=== PATIENT | male | born 1965 | race Caucasian/White ===

== ENCOUNTER 2024-08-11 01:06 | Inpatient (IN) | payer MEDICARE, SELFPAY ==
[2024-08-11] VITALS (21 sets, daily range): BP systolic 89–142; BP diastolic 53–89; PULSE 72–106; RESP 16–22; TEMP 36.6–36.7; O2SAT 87–100; BMI 38.7; BMI 39.7
--- NOTE | 2024-08-11 00:51 | ECG_ITS ---
APPROVED REPORT Exam: Resting ECG HR:100 bpm ECG Measurements Heart Rate 100 AXES CA 165 P -89 QRSd 93 QRS 114 QT 322 T -32 QTc 379 Conclusion Sinus TACHYCARDIA POSSIBLE RIGHT VENTRICULAR HYPERTROPHY [SOME/ALL OF: PROMINENT R IN V1, LATE TRANSITION, RAD, ZOIAL, SSS] POSSIBLE ANTERIOR MYOCARDIAL INFARCTION , OF INDETERMINATE AGE [30 ms Q WAVE IN V3/V4, OR R < 0.2 mV IN V4] No STEMI Electronically signed by : CATHLEEN JJ, 08/11/2024 05:19:12
--- NOTE | 2024-08-11 00:57 | PC.NURSE ---
Pt's glucose is 240
[2024-08-11 01:03] LABS: POC Glucose,Bedside 240 (70-110)
--- NOTE | 2024-08-11 01:05 | CT_ITS ---
PROCEDURE INFORMATION: Exam: CT Head Without Contrast Exam date and time: 08/11/2024 1:55 AM Age: 58 years old Clinical indication: Injury or trauma; Fall; Additional info: Falls, multiple TECHNIQUE: Imaging protocol: Computed tomography of the head without contrast. Radiation optimization: All CT scans at this facility use at least one of these dose optimization techniques: automated exposure control; mA and/or kV adjustment per patient size (includes targeted exams where dose is matched to clinical indication); or iterative reconstruction. COMPARISON: CT HEAD/BRAIN WO CON 08/11/2024 1:55 AM FINDINGS: Brain: There is a chronic left basal ganglia lacune. There is diffuse cortical volume loss and hypoattenuation of the deep white matter. No evidence of acute intracranial hemorrhage. No acute cerebral edema, mass effect or shift. Cerebral ventricles: No ventriculomegaly. Paranasal sinuses: Visualized sinuses are unremarkable. No fluid levels. Mastoid air cells: Visualized mastoid air cells are well aerated. Bones: Unremarkable. No acute fracture. Soft tissues: Unremarkable. IMPRESSION: No acute intracranial process. Diffuse cortical atrophy and chronic deep white matter small vessel disease.
--- NOTE | 2024-08-11 01:05 | CT_ITS ---
PROCEDURE INFORMATION: Exam: CTA Neck With Contrast Exam date and time: 08/11/2024 2:00 AM Age: 58 years old Clinical indication: Injury or trauma; Fall; Additional info: Multiple falls, syncopal episodes TECHNIQUE: Imaging protocol: Computed tomographic angiography of the neck with contrast. Exam focused on the cervical segments of the vasculature. 3D rendering (Not supervised by radiologist): MIP and/or 3D reconstructed images were created by the technologist. Radiation optimization: All CT scans at this facility use at least one of these dose optimization techniques: automated exposure control; mA and/or kV adjustment per patient size (includes targeted exams where dose is matched to clinical indication); or iterative reconstruction. Contrast material: ISOVUE; Contrast volume: 80 ml; Contrast route: INTRAVENOUS (IV); COMPARISON: CT CERVICAL SPINE WO CON 08/11/2024 1:57 AM FINDINGS: Right common carotid artery: Unremarkable. No significant stenosis. No dissection or occlusion. Right internal carotid artery: There is calcified mural plaque at the carotid bifurcation, but no significant stenosis. The remaining extracranial segment is patent with no significant stenosis. No dissection or occlusion. Right external carotid artery: No occlusion or stenosis of the origin. Left common carotid artery: Unremarkable. No significant stenosis. No dissection or occlusion. Left internal carotid artery: There is calcified mural plaque at the carotid bifurcation, but no significant stenosis. The remaining extracranial segment is patent with no significant stenosis. No dissection or occlusion. Left external carotid artery: No occlusion or stenosis of the origin. Right vertebral artery: No stenosis. No dissection or occlusion. Left vertebral artery: No stenosis. No dissection or occlusion. Soft tissues: No significant soft tissue swelling. Bones/joints: No acute fracture. Lungs: There are patchy infiltrates in the right upper lobe. IMPRESSION: 1. Calcific atherosclerotic changes at the bilateral carotid bifurcations, but no significant stenosis or occlusion. 2. No evidence of stenosis or occlusion of the remaining cervical great vessels. No evidence of dissection. 3. There are patchy infiltrates in the right upper lobe. Clinical correlation for an atypical pneumonia suggested. REFERENCES: NASCET CRITERIA. The degree of stenosis in the cervical segment of the internal carotid artery is based on NASCET criteria. Normal is no stenosis. Mild is less than 50% stenosis. Moderate is 50-69% stenosis. Severe is 70% to 99% stenosis. Total occlusion is no detectable patent lumen.
--- NOTE | 2024-08-11 01:05 | XR_ITS ---
PROCEDURE INFORMATION: Exam: XR Chest Exam date and time: 08/11/2024 1:44 AM Age: 58 years old Clinical indication: Other: Syncopal episode; Additional info: Syncopal episodes TECHNIQUE: Imaging protocol: Radiologic exam of the chest. Views: 1 view. COMPARISON: No relevant prior studies available. FINDINGS: Lungs: Right perihilar/infrahilar opacities. Pleural spaces: Unremarkable. No pleural effusion. No pneumothorax. Heart/Mediastinum: Unremarkable. No cardiomegaly. Bones/joints: Unremarkable. IMPRESSION: Right perihilar/infrahilar infiltrations.
--- NOTE | 2024-08-11 01:05 | XR_ITS ---
PROCEDURE INFORMATION: Exam: XR Right Ankle Exam date and time: 08/11/2024 1:44 AM Age: 58 years old Clinical indication: Pain; Ankle; Right; Additional info: Falls, pain TECHNIQUE: Imaging protocol: Radiologic exam of the right ankle. Views: 3 or more views. COMPARISON: No relevant prior studies available. FINDINGS: Bones/joints: No acute fracture. Normal alignment. Degenerative changes of intertarsal joints. Achilles tendinous enthesophyte. Inferior calcaneal spur. Soft tissues: Unremarkable. IMPRESSION: No acute findings.
--- NOTE | 2024-08-11 01:05 | CT_ITS ---
PROCEDURE INFORMATION: Exam: CTA Head With Contrast, Arteriography Exam date and time: 08/11/2024 2:00 AM Age: 58 years old Clinical indication: Injury or trauma; Fall; Additional info: Multiple falls, syncopal episodes TECHNIQUE: Imaging protocol: Computed tomographic angiography of the head with contrast. Exam focused on the arteries. 3D rendering (Not supervised by radiologist): MIP and/or 3D reconstructed images were created by the technologist. Radiation optimization: All CT scans at this facility use at least one of these dose optimization techniques: automated exposure control; mA and/or kV adjustment per patient size (includes targeted exams where dose is matched to clinical indication); or iterative reconstruction. Contrast material: ISOUVE; Contrast volume: 80 ml; Contrast route: INTRAVENOUS (IV); COMPARISON: CT HEAD/BRAIN WO CON 08/11/2024 1:55 AM FINDINGS: ANTERIOR CIRCULATION: Right internal carotid artery: There are mural calcifications and plaque along the course of the intracranial internal carotid artery. No significant stenosis or occlusion. Right middle cerebral artery: No occlusion or significant stenosis. No aneurysm. Right anterior cerebral artery: No occlusion or significant stenosis. No aneurysm. Left internal carotid artery: There are mural calcifications and plaque along the course of the intracranial internal carotid artery. No significant stenosis or occlusion. Left middle cerebral artery: No occlusion or significant stenosis. No aneurysm. Left anterior cerebral artery: No occlusion or significant stenosis. No aneurysm. POSTERIOR CIRCULATION: Right vertebral artery: No occlusion or significant stenosis. No aneurysm. Left vertebral artery: No occlusion or significant stenosis. No aneurysm. Basilar artery: No occlusion or significant stenosis. No aneurysm. Right posterior cerebral artery: No occlusion or significant stenosis. No aneurysm. Left posterior cerebral artery: No occlusion or significant stenosis. No aneurysm. Brain: No hemorrhage. Unremarkable white matter. No mass effect. Cerebral ventricles: No ventriculomegaly. Bones/joints: Unremarkable. No acute fracture. Soft tissues: Unremarkable. IMPRESSION: 1. There are atherosclerotic changes of the bilateral intracranial internal carotid artery segments. No significant stenosis or occlusion. 2. Otherwise no evidence of intracranial large vessel stenosis or occlusion of the remaining cerebral arteries. No evidence of aneurysm or AVM.
--- NOTE | 2024-08-11 01:05 | CT_ITS ---
PROCEDURE INFORMATION: Exam: CT Chest With Contrast; Diagnostic Exam date and time: 08/11/2024 2:04 AM Age: 58 years old Clinical indication: Injury or trauma; Fall; Additional info: Falls, R rib pain HX previous FX 2-3y ago TECHNIQUE: Imaging protocol: Diagnostic computed tomography of the chest with contrast. Radiation optimization: All CT scans at this facility use at least one of these dose optimization techniques: automated exposure control; mA and/or kV adjustment per patient size (includes targeted exams where dose is matched to clinical indication); or iterative reconstruction. Contrast material: ISOVUE; Contrast volume: 75 ml; Contrast route: IV; COMPARISON: CR XR CHEST PORTABLE 08/11/2024 1:44 AM FINDINGS: Lungs: Right perihilar peribronchial opacities in right upper and lower lobes. Minimal peribronchial opacities in left lower lobe. Bibasilar subsegmental atelectasis. Pleural spaces: Unremarkable. No pneumothorax. No pleural effusion. Heart: Unremarkable. No cardiomegaly. No pericardial effusion. Lymph nodes: Unremarkable. No enlarged lymph nodes. Vasculature: Unremarkable. No aortic aneurysm. Bones/joints: Unremarkable. No acute fracture. Soft tissues: Unremarkable. Atherosclerotic calcification of left anterior descending coronary arteries. IMPRESSION: 1. No obvious traumatic findings identified. 2. Mostly right-sided peribronchial infiltration with minimal left lower lobar peribronchial infiltration.
[2024-08-11 01:15] LABS: VBG HCO3 28.3 mmol/L (23-30); VBG Oxygen Saturation 80.1 % (50-70); VBG PCO2 49.8 mmol/L (35-51); VBG PH 7.37 mmol/L (7.31-7.41); VBG PO2 46.1 mmol/L (28-40); VBG Total CO2 29.8 mmol/L (23-27)
[2024-08-11 01:18] LABS: Lactate Venous 2.1 mmol/L (0.4-2.0)
[2024-08-11 01:24] LABS: Basophils % 0.2 % (0.1-2.0); Eosinophils # 0.1 Kmm3 (0.0-0.4); Eosinophils % 0.5 % (0.1-12.0); Hematocrit 37.7 % (42.0-52.0); Hemoglobin 12.2 g/dL (14.1-18.0); Lymphocytes # 0.8 K/mm3 (0.7-4.5); Lymphocytes % 3.4 % (10-50); Mean Corpuscular HGB Conc 32.4 g/dL (31.8-35.4); Mean Corpuscular Hemoglobin 25.7 pg (27.0-31.2); Mean Corpuscular Volume 79.5 fl (80-94); Mean Platelet Volume 9.8 fl (7.4-10.4); Monocytes # 1.2 K/mm3 (0.1-1.0); Monocytes % 4.9 % (1.7-9.3); Neutrophils % 90.3 % (37.0-80.0); Nucleated Red Blood Cells # 0 10^3/uL; Nucleated Red Blood Cells % 0 %; Platelet Count 219 K/mm3 (142-424); Red Blood Count 4.74 M/mm3 (4.60-6.20); Red Cell Distribution Width 16.7 % (11.5-17.5); Red Cell Distribution Width-SD 47.6 fL; White Blood Count 24.3 K/mm3 (4.8-10.8)
--- NOTE | 2024-08-11 01:25 | HMH.EDGENADL ---
Discharge Plan Disposition Patient Disposition: Admitted Condition: Serious Clinical Impressions Clinical Impression: Syncope, Fall, Pneumonia, Sepsis Discharge ED Provider: Nubia Masterson Adult HPI General Chief complaint: Fall Stated complaint: Fall Time Seen by Provider: 08/11/24 01:07 Mode of Arrival: EMS Source of Information: Patient and EMS Description of Symptoms (Recalled from ER Triage Doc. by RN): Patient has had multiple falls and has been to [facility]- complains of right rib pain after a fall today History of Present Illness HPI narrative: 58-year-old male presents to the ER via EMS. Reportedly patient has had multiple falls recently and reports being unsteady on his feet over the last few days to weeks. He states he is fallen multiple times in the last few days. Allegedly he has been to [facility] recently for similar complaints. Reportedly patient had a mechanical fall tonight. He states he gets dizzy, blacks out, then falls. He states he has struck his head. His loss of consciousness was brief. It is never associated with chest pain or vomiting. Patient denies being short of breath but was placed on oxygen by EMS, he does not wear oxygen at home. He states he does smoke and use marijuana and has a history of COPD with inhaler use. He reports having heart problems but cannot elaborate on this any further. He denies taking a diuretic pill. Patient is overall a poor historian. He denies any recent illness, no fevers or chills, no chest pain, no nausea, vomiting, or abdominal pain. He reports he is having right rib pain and states a few years ago he broke his ribs and thinks he may have cracked 1 again. He also complains of right ankle pain. Related Data Allergies Allergy/AdvReac Type Severity Reaction Status Date / Time No Known Allergies Allergy Verified 08/11/24 01:40 [facility] Disclaimer: The information contained in this section may have been updated after the patient was seen, as this information can be updated by other users. Social History (Updated 08/11/24 @ 04:51 by Radha Cagle MD) Smoking Status: Never smoker alcohol intake: former current occupational status: employed Travel in the last 8 weeks?: None ROS Obtained: Yes Systems reviewed as appropriate & no additional complaints except as documented Per HPI Physical Exam General General appearance: alert and in no apparent distress Head Head exam: normocephalic and other (Few small areas of ecchymosis on the scalp of varying age without evidence of skull fracture or hematoma no laceration appreciated) Eye Eye exam: Present PERRL and EOMI ENT ENT exam: Present mucous membranes moist and other (Nasal cannula in place) Neck Neck exam: Present normal inspection and full ROM; Absent tenderness Chest Chest inspection: Present symmetric chest wall rise and tenderness (Mild right inferior lateral chest wall tenderness without deformity, bruising, or crepitus.) Respiratory Respiratory exam: Present other (Rhonchi and rales bilaterally saturating 100% on 2 L nasal cannula); Absent respiratory distress, wheezes or stridor Cardiovascular Cardiovascular exam: Present regular rate and normal rhythm Abdominal Exam Abdominal exam: Present soft; Absent distention or tenderness Extremities Exam Extremities exam: Present full ROM and other (Multiple areas of ecchymosis on the bilateral lower extremities, few healing abrasions as well, right ankle has full range of motion the patient describes pain. There is no swelling or focal tenderness); Absent edema or joint swelling Neurological Exam Neurological exam: Present alert, oriented X3 and other (Normal finger-nose and [id number], NIH 0); Absent motor sensory deficit Psychiatric Psychiatric exam: Present normal affect and normal mood Skin Skin exam: Present warm and dry Medical Decision Making Medical Records Screening: Per USPSTF and CDC recommendations, given the prevalence of disease in our region, it is our hospital?s policy to screen for HIV and viral Hepatitis for all patients aged 18 and over and those with ongoing risk factors. Gino Inquiry Pt receiving controlled substance: No Vital Signs: 08/11/24 01:00 08/11/24 01:07 08/11/24 01:21 Temperature 97.9 F Temperature Source Oral Pulse Rate 95 H Pulse Rate [Orthostatic Lying Right Radial] 95 H Pulse Rate [Orthostatic Sitting Right Radial] 100 H Pulse Rate [Right Radial] 94 H Respiratory Rate 16 Blood Pressure Blood Pressure [Orthostatic Lying Right Arm] 116/67 Blood Pressure [Orthostatic Sitting Right Arm] 104/77 L Blood Pressure [Right Arm] 116/67 Blood Pressure Mean Blood Pressure Mean [Right Arm] 83 Blood Pressure Source Blood Pressure Source [Right Arm] Automatic Cuff Blood Pressure Position 02 Sat by Pulse Oximetry 87 L 100 Oxygen Delivery Method Nasal Cannula Oxygen Flow Rate (LPM) 2 08/11/24 01:30 08/11/24 02:12 08/11/24 02:30 Temperature Temperature Source Pulse Rate 88 97 H 75 Pulse Rate [Orthostatic Lying Right Radial] Pulse Rate [Orthostatic Sitting Right Radial] Pulse Rate [Right Radial] Respiratory Rate Blood Pressure 99/75 L 92/63 L 102/56 L Blood Pressure [Orthostatic Lying Right Arm] Blood Pressure [Orthostatic Sitting Right Arm] Blood Pressure [Right Arm] Blood Pressure Mean 74 Blood Pressure Mean [Right Arm] Blood Pressure Source Blood Pressure Source [Right Arm] Blood Pressure Position 02 Sat by Pulse Oximetry 95 91 L Oxygen Delivery Method Oxygen Flow Rate (LPM) 08/11/24 03:30 08/11/24 04:12 08/11/24 04:30 Temperature Temperature Source Pulse Rate 73 73 74 Pulse Rate [Orthostatic Lying Right Radial] Pulse Rate [Orthostatic Sitting Right Radial] Pulse Rate [Right Radial] Respiratory Rate Blood Pressure 91/53 L 107/89 L 89/56 L Blood Pressure [Orthostatic Lying Right Arm] Blood Pressure [Orthostatic Sitting Right Arm] Blood Pressure [Right Arm] Blood Pressure Mean Blood Pressure Mean [Right Arm] Blood Pressure Source Blood Pressure Source [Right Arm] Blood Pressure Position 02 Sat by Pulse Oximetry 91 L 94 L 96 Oxygen Delivery Method Oxygen Flow Rate (LPM) 08/11/24 04:48 Temperature 97.9 F Temperature Source Oral Pulse Rate 74 Pulse Rate [Orthostatic Lying Right Radial] Pulse Rate [Orthostatic Sitting Right Radial] Pulse Rate [Right Radial] Respiratory Rate 16 Blood Pressure 89/56 L Blood Pressure [Orthostatic Lying Right Arm] Blood Pressure [Orthostatic Sitting Right Arm] Blood Pressure [Right Arm] Blood Pressure Mean Blood Pressure Mean [Right Arm] Blood Pressure Source Automatic Cuff Blood Pressure Source [Right Arm] Blood Pressure Position Supine 02 Sat by Pulse Oximetry Oxygen Delivery Method Nasal Cannula Oxygen Flow Rate (LPM) 2 Lab Data Lab Results 08/11/24 00:55: POC Glucose 240 H 08/11/24 01:02: WBC 24.3 H*, RBC 4.74, Hgb 12.2 L, Hct 37.7 L, MCV 79.5 L, MCH 25.7 L, MCHC 32.4, RDW 16.7, Plt Count 219, MPV 9.8, Neut % (Auto) 90.3 H, Lymph % (Auto) 3.4 L, [place] % (Auto) 4.9, Eos % (Auto) 0.5, Baso % (Auto) 0.2, Neut # (Auto) 22.0 H, Lymph # (Auto) 0.8, [place] # (Auto) 1.2 H, Eos # (Auto) 0.1, Baso # (Auto) 0.0, Total Counted 100, Neutrophils % (Manual) 91 H, Lymphocytes % (Manual) 7 L, Monocytes % (Manual) 1 L, Eosinophils % (Manual) 1, Platelet Estimate Normal, RBC Morphology Normal, Sodium 129 L, Potassium 5.7 H, Chloride 91 L, Carbon Dioxide 34 H, Anion Gap 9.7, BUN 46 H, Creatinine 2.00 H, Estimated Creat Clear 60, Estimated GFR 34 L, Est GFR ( Amer) 41 L, Glucose 229 H, Calcium 8.5, Total Bilirubin 1.2, AST 24, ALT 30, Alkaline Phosphatase 70, Troponin I 0.04 H, NT-Pro-B Natriuret Pep 1000 H, Total Protein 6.2 L, Albumin 3.8, Globulin 2.4, Albumin/Globulin Ratio 1.6, Plasma/Serum Alcohol < 10 08/11/24 01:05: VBG pH 7.37, VBG pCO2 49.8, VBG pO2 46.1 H, VBG HCO3 28.3, VBG Total CO2 29.8 H, VBG O2 Saturation 80.1 H, VBG Base Excess 3.0 H, VBG Lactic Acid 2.1 H 08/11/24 03:53: VBG pH 7.38, VBG pCO2 48.4, VBG pO2 116.9 H, VBG HCO3 28.2, VBG Total CO2 29.7 H, VBG O2 Saturation 98.2 H, VBG Base Excess 3.2 H, VBG Lactic Acid 1.7 08/11/24 01:02 08/11/24 01:02 Orders (Tests/Meds): ED MEDICATIONS Generic Name Dose Route Start Last Admin Trade Name Freq PRN Reason Stop Dose Admin Acetaminophen 650 mg 08/11/24 04:51 Acetaminophen 325mg Tab PO 09/10/24 04:50 Q4HP PRN Fever or Mild Pain (1-3) Heparin Sodium (Porcine) 5,000 unit 08/11/24 09:00 Heparin Sodium 5,000 Unit/Ml Vial SUBCUT 09/10/24 08:59 TID FIDENCIO Piperacillin Sod/Tazobactam 50 mls @ 100 mls/hr 08/11/24 11:00 Sod 3.375 gm/ Sodium Chloride IV 08/21/24 10:59 Q8H [facility] Miscellaneous 1 each 08/11/24 02:00 08/11/24 02:01 Vancomycin Consult Request NOTAPPLIC 09/10/24 01:59 Not Given CONSULT PHARMACY [facility] Miscellaneous 1 each 08/11/24 05:00 08/11/24 04:59 Vancomycin Consult Request NOTAPPLIC 09/10/24 04:59 1 each CONSULT PHARMACY [facility] Administration Ondansetron HCl 4 mg 08/11/24 04:51 Ondansetron 4mg/2ml Vial IV 09/10/24 04:50 Q8HP PRN Nausea Discontinued Medications Generic Name Dose Route Start Last Admin Trade Name Freq PRN Reason Stop Dose Admin Lactated Ringer's 1,000 mls @ 999 mls/hr 08/11/24 01:44 08/11/24 02:30 Lactated Ringer's 1000 Ml Bag IV 08/11/24 02:44 999 mls/hr .Q1H1M ONE Administration Piperacillin Sod/Tazobactam 100 mls @ 200 mls/hr 08/11/24 01:47 08/11/24 02:31 Sod 4.5 gm/ Sodium Chloride IV 08/11/24 02:16 200 mls/hr ONCE ONE Administration Vancomycin HCl 2,500 mg/ 500 mls @ 250 mls/hr 08/11/24 02:00 08/11/24 02:31 Sodium Chloride IV 08/11/24 03:59 250 mls/hr ONCE ONE Administration Iopamidol 155 ml 08/11/24 02:10 08/11/24 02:11 Iopamidol-370 (76%);100ml Bottle IV 08/11/24 02:11 155 ml ONCE ONE Administration Sodium Chloride 50 ml 08/11/24 02:10 08/11/24 02:11 0.9 % Sodium Chloride 50 Ml Vial IV 08/11/24 02:11 50 ml ONCE ONE Administration Sodium Chloride 10 ml 08/11/24 02:10 08/11/24 02:11 Sodium Chloride 0.9% 10ml Syr (Rad Only) IV 08/11/24 02:11 10 ml ONCE ONE Administration ORDERS Category Date Time Status CT angio head Stat Cat Scan 08/11/24 01:[address] angio neck Stat Cat Scan 08/11/24 01:[address] cervical spine wo con Stat Cat Scan 08/11/24 01:[address] chest w con Stat Cat Scan 08/11/24 01:[address] head/brain wo con Stat Cat Scan 08/11/24 01:05 Completed Ankle XR -Right minimum 3 Views [XR ankle RT min 3V] Exams 08/11/24 01:05 Completed Stat CXR --portable [XR chest portable] Stat Exams 08/11/24 01:05 Completed POCUS Point of Care (ER Only) Stat Exams 08/11/24 01:14 Completed BNP [NT Pro Brain Natriuretic Pep.] Stat Lab 08/11/24 01:02 Completed CBC w/Auto Diff [Complete Blood Count Auto Diff] Stat Lab 08/11/24 01:02 Completed CMP [Comprehensive Metabolic Panel] Stat Lab 08/11/24 01:02 Completed Ethanol [Ethyl Alcohol] Stat Lab 08/11/24 01:02 Completed POC Glucose,Bedside Routine Lab 08/11/24 00:55 Completed Trop I [Troponin I] Stat Lab 08/11/24 01:02 Completed Troponin I Q3H Lab 08/11/24 04:09 Completed Troponin I Q3H Lab 08/11/24 07:15 Ordered UDS [Drug Screen,Urine] Stat Lab 08/11/24 01:30 Ordered Urinalysis and Microscopic Stat Lab 08/11/24 01:30 Ordered Blood Culture Stat Micro 08/11/24 02:23 Received VBG [Venous Blood Gas] Stat RT 08/11/24 01:05 Completed VBG [Venous Blood Gas] Stat RT 08/11/24 03:53 Completed Medical Decision Narrative: In summary, this 58-year-old male with comorbidities described in the HPI presents to the emergency department today with multiple recent falls, specifically complaining of right rib and right ankle pain tonight after blacking out and then falling. On initial evaluation patient is hemodynamically stable, afebrile, oriented, GCS 15, no localizing neurologic deficits, abdominal exam benign, patient has multiple areas of ecchymosis of varying ages as well as healing abrasions but no open lacerations. Differential diagnosis includes but is not limited to arrhythmia, orthostatic hypotension, electrolyte abnormality, intracranial bleed, also considered the possibility of other intracranial lesion including vascular lesion which could be causing poor flow and syncope, also considered fluid overload, heart failure, pneumonia, UTI, intoxication, also considered the possibility of rib fracture, pneumothorax, pulmonary contusion, pleural effusion, osseous injury of the ankle, among others. Based on these concerns, I ordered serum labs, cardiac workup, CT imaging, x-rays. ECG personally interpreted demonstrates sinus tachycardia versus ectopic atrial tachycardia, right axis deviation, normal QTc, no STEMI. Orthostatic vitals do not demonstrate some decrease in systolic blood pressure with change in position but no significant change in heart rate. Patient received IV fluids initially for treatment. Labs personally reviewed demonstrate VBG with normal pH, VBG lactic slightly elevated at 2.1, CBC notable for WBC 24.3, significant leukocytosis with neutrophil predominance, mild anemia, CMP with hyponatremia, hypochloremia, hyperkalemia. Patient does not report vomiting or diarrhea. He also has evidence of prerenal azotemia and kidney dysfunction with elevated BUN and creatinine with no previous comparison. With patient's WBC, tachycardia, borderline hypotension, evidence of rhonchi/rales bilaterally, I am going to treat the patient for sepsis. He will not receive a full 30 mL/kg sepsis bolus due to concern for history of cardiac problems so only 1L to start with, however broad-spectrum antibiotics and blood cultures have been ordered. BNP elevated but I am not going to diurese the patient at this time since he does not have peripheral edema and does have multiple electrolyte derangements. [id number] ultrasound does not demonstrate pericardial effusion, there does appear to be mild decrease in left ventricular squeeze globally without localizing wall motion abnormality, exam limited secondary to acoustic windows and body habitus. See procedure note for details. Chest x-ray personally interpreted demonstrates likely right perihilar infiltrate, see radiology read for final interpretation. Right ankle x-ray personally interpreted does not demonstrate acute osseous injury. See radiology read. CT head personally interpreted does not demonstrate intracranial bleed, mass, or midline shift, see radiology read for final interpretation. CT C-spine does not demonstrate acute traumatic injury, see radiology read for final interpretation. CT chest personally interpreted demonstrates small right pleural effusion, multifocal right lung infiltrate. See radiology read for final interpretation. I believe patient has pneumonia contributing to his symptoms and his sepsis. All CT reads were reviewed. Patient does not have vascular abnormality on CT angiography of the head or neck. See radiology reads for full interpretations. At this time I believe patient requires admission to the hospital for continued management of sepsis, pneumonia, as well as further evaluation of his multiple syncopal episodes and falls. Patient agreeable. I discussed this case with the hospitalist including lab and imaging findings as well as his management so far in the ER. Patient was graciously accepted for admission but prior to being admitted he requested repeat VBG which demonstrates patient continues to have normal pH, lactic improved, no hypercarbia. Patient admitted in serious but stable condition. Procedures Miscellaneous Procedure Procedure Performed: Limited Cardiac Ultrasound Indication: Syncope, weakness Identified cardiac views: Parasternal short axis, subxiphoid Other views were attempted but not able to be obtained secondary to body habitus and acoustic windows Findings: Cardiac activity present with diffuse left ventricular mild to moderate decreased squeeze but no localized wall motion abnormality, pericardial effusion absent, no right heart strain Impression: Cardiac activity present with diffuse left ventricular mild to moderate decreased squeeze but no localized wall motion abnormality, pericardial effusion absent, no right heart strain Images were saved to permanent archive The study was technically adequate CPT: 62292 This study was performed by me, and I personally interpreted all images/videos. Based on my clinical judgement, these images were adequate and did not necessitate further imaging. Critical Care Critical Care Time Critical Care Time: Yes Attestation: On 08/11/24, the high probability of a clinically significant, sudden or life threatening deterioration of the following system(s) (cardiac) required my full and direct attention, intervention and personal management. The time I documented below is in addition to time spent performing reported procedures but includes the following listed in this critical care notation. Total Time Total Critical Care Time: 35
--- NOTE | 2024-08-11 01:28 | CT_ITS ---
PROCEDURE INFORMATION: Exam: CT Cervical Spine Without Contrast Exam date and time: 08/11/2024 1:57 AM Age: 58 years old Clinical indication: Injury or trauma; Fall; Additional info: Multiple falls TECHNIQUE: Imaging protocol: Computed tomography of the cervical spine without contrast. Radiation optimization: All CT scans at this facility use at least one of these dose optimization techniques: automated exposure control; mA and/or kV adjustment per patient size (includes targeted exams where dose is matched to clinical indication); or iterative reconstruction. COMPARISON: CT CERVICAL SPINE WO CON 08/11/2024 1:57 AM FINDINGS: Bones: No acute fracture or dislocation. There are severe multilevel degenerative disc changes and facet osteoarthropathy. Lungs: Lung apices demonstrate no acute process. Soft tissues: Unremarkable. IMPRESSION: No acute fracture or dislocation. There is severe multilevel degenerative disc disease and facet osteoarthropathy.
[2024-08-11 01:29] LABS: Alanine Aminotransferase 30 U/L (12-78); Albumin Level 3.8 g/dl (3.5-5.0); Albumin/Globulin Ratio 1.6 (1.1-1.8); Alkaline Phosphatase 70 U/L (38-126); Anion Gap 9.7 mEq/L (5-15); Aspartate Amino Transferase 24 U/L (17-59); Bilirubin,Total 1.2 mg/dl (0.2-1.3); Blood Urea Nitrogen 46 mg/dl (9-20); Calcium 8.5 mg/dl (8.4-10.2); Carbon Dioxide 34 mmol/L (22.0-30.0); Chloride 91 mmol/L (98-107); Creatinine Clearance Estimated 60 mL/min (50-200); Estimated Glomerular Filt Rate 34 ml/min (>60); GFR (African American) 41 ML/MIN (>60); Globulin 2.4 g/dL (1.3-3.2); Glucose 229 mg/dl (74-100); Potassium 5.7 mmoL/L (3.5-5.1); Sodium 129 mmol/L (136-145); Total Protein,Serum 6.2 g/dl (6.3-8.2)
[2024-08-11 01:38] LABS: MANUAL DIFFERENTIAL MANUAL DIFFERENTIAL (MANUAL DIFF)
[2024-08-11 01:41] LABS: NT Pro Brain Natriuretic Pep. 1000 pg/mL (0-125); Troponin I 0.04 ng/ml (0.00-0.034)
[2024-08-11 01:51] LABS: Ethyl Alcohol < 10 mg/dl (0-10)
[2024-08-11] MEDS: IOPAMIDOL-370 (76%);100ML BOTTLE 155 ML IV (02:11)
[2024-08-11] MEDS: 0.9 % SODIUM CHLORIDE 50 ML VIAL IV (02:11)
[2024-08-11] MEDS: SODIUM CHLORIDE 0.9% 10ML SYR (RAD ONLY) 10 ML IV (02:11)
[2024-08-11] MEDS: LACTATED RINGERS 1000ML 1,000 ML 999 ML IV (02:30)
[2024-08-11] MEDS: PIPERACILLIN/TAZO 4.5 GM in 0.9 % SODIUM CHLORIDE 100 ML IV ×4 (02:31→23:00)
[2024-08-11] MEDS: VANCOMYCIN HCL 2,500 MG in 0.9 % SODIUM CHLORIDE 500 ML 250 MG IV (02:31)
[2024-08-11 02:44] LABS: Eosinophils % 1 % (0-3); Lymphocytes % 7 % (10-50); Monocytes % 1 % (2-9); Neutrophils % 91 % (42-76); Total Cells Counted 100
[2024-08-11 02:45] LABS: Platelet Estimate Normal; RBC Morphology Normal
[2024-08-11 03:59] LABS: Lactate Venous 1.7 mmol/L (0.4-2.0); VBG Base Excess 3.2 mmol/L (-2.4-2.3); VBG HCO3 28.2 mmol/L (23-30); VBG Oxygen Saturation 98.2 % (50-70); VBG PCO2 48.4 mmol/L (35-51); VBG PH 7.38 mmol/L (7.31-7.41); VBG PO2 116.9 mmol/L (28-40); VBG Total CO2 29.7 mmol/L (23-27)
[2024-08-11 04:35] LABS: Troponin I 0.04 ng/ml (0.00-0.034)
--- NOTE | 2024-08-11 04:40 | P.HP_ITS ---
History of Present Illness *Admission Date: 08/11/24 *Reason for visit:: fall *History of present illness: history unable to be obtained due to encephalopathy, lack of participation in interview and poor historian. obtained via er provider and records 58-year-old male presents to the ER via EMS. Reportedly patient has had multiple falls recently and reports being unsteady on his feet over the last few days to weeks. He states he is fallen multiple times in the last few days. Allegedly he has been to [facility] recently for similar complaints. Reportedly patient had a mechanical fall tonight. He states he gets dizzy, blacks out, then falls. He states he has struck his head. His loss of consciousness was brief. It is never associated with chest pain or vomiting. Patient denies being short of breath but was placed on oxygen by EMS, he does not wear oxygen at home. He states he does smoke and use marijuana and has a history of COPD with inhaler use. He reports having heart problems but cannot elaborate on this any further. He denies taking a diuretic pill. Patient is overall a poor historian. He denies any recent illness, no fevers or chills, no chest pain, no nausea, vomiting, or abdominal pain. He reports he is having right rib pain and states a few years ago he broke his ribs and thinks he may have cracked 1 again. He also complains of right ankle pain. CT spine IMPRESSION: No acute fracture or dislocation. There is severe multilevel degenerative disc disease and facet osteoarthropathy. [facility] Disclaimer: The information contained in this section may have been updated after the patient was seen, as this information can be updated by other users. Social History Smoking Status: Never smoker alcohol intake: former current occupational status: employed Travel in the last 8 weeks?: None Meds Home Medications and Allergies New Prescriptions to Start Prescriptions: Allergies Allergy/AdvReac Type Severity Reaction Status Date / Time No Known Allergies Allergy Verified 08/11/24 01:40 Exam Data for Last 24 hours Vital signs and Labs for Last 24 Hours: Temp Pulse Resp BP Pulse Ox O2 Del Method O2 Flow Rate 97.9 F 74 16 89/56 L 96 Nasal Cannula 2 08/11/24 01:07 08/11/24 04:30 08/11/24 01:07 08/11/24 04:30 08/11/24 04:30 08/11/24 01:07 08/11/24 01:07 Laboratory Results - last 24 hr 08/11/24 00:55: POC Glucose 240 H 08/11/24 01:02: WBC 24.3 H*, RBC 4.74, Hgb 12.2 L, Hct 37.7 L, MCV 79.5 L, MCH 25.7 L, MCHC 32.4, RDW 16.7, Plt Count 219, MPV 9.8, Neut % (Auto) 90.3 H, Lymph % (Auto) 3.4 L, [place] % (Auto) 4.9, Eos % (Auto) 0.5, Baso % (Auto) 0.2, Neut # (Auto) 22.0 H, Lymph # (Auto) 0.8, [place] # (Auto) 1.2 H, Eos # (Auto) 0.1, Baso # (Auto) 0.0, Total Counted 100, Neutrophils % (Manual) 91 H, Lymphocytes % (Manual) 7 L, Monocytes % (Manual) 1 L, Eosinophils % (Manual) 1, Platelet Estimate Normal, RBC Morphology Normal, Sodium 129 L, Potassium 5.7 H, Chloride 91 L, Carbon Dioxide 34 H, Anion Gap 9.7, BUN 46 H, Creatinine 2.00 H, Estimated Creat Clear 60, Estimated GFR 34 L, Est GFR ( Amer) 41 L, Glucose 229 H, Calcium 8.5, Total Bilirubin 1.2, AST 24, ALT 30, Alkaline Phosphatase 70, Troponin I 0.04 H, NT-Pro-B Natriuret Pep 1000 H, Total Protein 6.2 L, Albumin 3.8, Globulin 2.4, Albumin/Globulin Ratio 1.6, Plasma/Serum Alcohol < 10 08/11/24 01:05: VBG pH 7.37, VBG pCO2 49.8, VBG pO2 46.1 H, VBG HCO3 28.3, VBG Total CO2 29.8 H, VBG O2 Saturation 80.1 H, VBG Base Excess 3.0 H, VBG Lactic Acid 2.1 H 08/11/24 03:53: VBG pH 7.38, VBG pCO2 48.4, VBG pO2 116.9 H, VBG HCO3 28.2, VBG Total CO2 29.7 H, VBG O2 Saturation 98.2 H, VBG Base Excess 3.2 H, VBG Lactic Acid 1.7 08/11/24 04:09: Troponin I 0.04 H I & O for Last 24 hours: Intake & Output 08/08/24 08/09/24 08/10/24 08/11/24 23:59 23:59 23:59 23:59 Weight 108.862 kg Constitutional Constitutional: no acute distress, obese and chronically ill appearing *Routine HEENT Exam Head: Present normocephalic Eye: Present EOMI ENT: Present mucous membranes moist *Routine Neck Exam Neck: Present supple and full ROM; Absent JVD *Routine Respiratory Exam Respiratory: Present decreased breath sounds and rales; Absent accessory muscle use, CTA bilaterally or respiratory distress *Routine Cardiovascular Exam Cardiovascular: Present RRR, Normal S1 and Normal S2 *Routine Abdominal Exam Abdominal: Present soft and normoactive bowel sounds *Routine Rectal Exam Rectal:: deferred *Routine Genitalia Exam Genitalia:: deferred *Routine Extremities Exam Extremities: Absent cyanosis or clubbing *Routine Skin Exam Skin: Present intact; Absent cyanosis *Routine Neurological Exam Neurological: Present oriented X3; Absent alert Comments: mild hypoactive encephalopathy, diffult to awaken Routine Psychiatric Exam Psychiatric: Present unable to assess Assessment and Plan *Assessment and plan (1) Sepsis: Status: Acute Category: Medical Code(s): A41.9 - Sepsis, unspecified organism (2) Pneumonia: Status: Acute Category: Medical Code(s): J18.9 - Pneumonia, unspecified organism (3) Fall: Status: Acute Category: Medical Code(s): W19.XXXA - Unspecified fall, initial encounter (4) Syncope: Status: Acute Category: Medical Code(s): R55 - Syncope and collapse Plan multifocal pneumonia leukocytosis sepsis - o2 supplementation - abx - vanc zosyn in ED, will continue - follow up blood cultures - respiratory therapy syncope with fall - likely sepsis from pna - tele monitoring - holter on dc - echo ordered hypoactive encephalopathy - vgb non hypercapnic on arrival - suspect from sepsis, will monitor microcytic anemia - fe studies mild hyponatremia - monitor hyperkalemia - monitor ckd - monitor elevated troponin elevated bnp - echo - cardiology consult
--- NOTE | 2024-08-11 04:55 | CA_ITS ---
APPROVED REPORT EXAM: Comprehensive 2D, Doppler, and color-flow Echocardiogram with contrast Tile Layer Supervisor: Roseline Fleming CRT Ht: 5 ft 6 in Wt: 240lbs BSA: 2.16 BP: 89/56 mmHg Indications: COPD, encephalopathy, increased trop, marijuana use, confused Definity given Echo Enhancing Agent Indication: Endocardial border delineation Agent(s) / Amount(s) Used: Definity 2 cc Comments: Definity given 2D Dimensions LA Volume 47.20 mL LA Volume Index 21.40 mL/m2 (M/F) 16-34 M-Mode Dimensions RVDd 2.48 cm (0.9-2.6) LA Diam 5.06 cm (1.9-4.0) LVDd 6.28 cm (3.5-5.7) LVDs 5.07 cm (3.5-5.7) IVSd 1.16 cm (0.6-1.1) PWd 1.08 cm (0.6-1.1) EF (Teich) 38.90% FS 19.30% EDV (Teich) 199.70 mL TAPSE 1.51 (<1.7) ESV (Teich) 122.10 mL LV Diastology E Decel Time 190 (160-240 msec) E/A Ratio 3.26 MED A' 2.60 cm/s LAT A' 4.70 cm/s Aortic Valve AO Peak GR. 6.10 mmHg Mitral Valve MV E Max Adiel. 103.0 (40-130 cm/s) MV A Velocity 32.0 (40-130 cm/s) E/A Ratio 3.26 MV PHT 56.0 ms Pulmonary Valve PV Peak Velocity 112.0 (50-150 cm/s) Tricuspid Valve TR P. Velocity 229.00 cm/s RAP Estimate 10.00 mmHg RVSP 31.00 mmHg Left Ventricle The left ventricle is mildly dilated. There is increased LV wall thickness. The left ventricular systolic function is moderately to severely reduced. There is moderate to severe global hypokinesis present. LVEF is 70%. Diastolic function is indeterminate. No left ventricle thrombus noted on this study. Right Ventricle Right ventricle is mildly to moderately dilated. Right ventricle is mildly hypokinetic. Atria The left atrium is mildly dilated. Right atrium is mildly dilated. There is no Doppler evidence of interatrial shunt. Aortic Valve The aortic valve is mildly thickened. There is no aortic valvular stenosis. Mild aortic regurgitation. Mitral Valve The mitral valve is normal in structure. No evidence of mitral valve stenosis. Mild mitral regurgitation. Tricuspid Valve Tricuspid valve is grossly normal in structure and function. Mild tricuspid regurgitation. RVSP is 20-25 mmHg. Pulmonic Valve The pulmonary valve is normal in structure. Trace pulmonic regurgitation. Great Vessels The aortic root is normal in size. IVC is normal in size and collapses >50% with inspiration. Pericardium There is no pericardial effusion. Conclusion Mild LV dilation with moderate to severe reduction in LV systolic function (LVEF 30%) Mild to moderate RV dilation with mild reduction in RV function. Biatrial dilation. Mild MR, mild AI, mild TR. Electronically signed by : Juany Thomas MD 08/11/2024 12:53:37
[2024-08-11] MEDS: VANCOMYCIN CONSULT REQUEST 1 EACH NOTAPPLIC (04:59)
[2024-08-11 05:05] LABS: Reflex Lactic Add Lactic Reflex
--- NOTE | 2024-08-11 05:46 | PC.NURSE ---
Patient confused, will orient for period of time, but will tell different years for birthdate. When ask questions on admission, patient cant explain past medical history or unsure of medications. No contacts in for patient to contact.
--- NOTE | 2024-08-11 05:51 | PC.NURSE ---
Patient arrived to floor via stretcher from ED at 05:00.
[2024-08-11] MEDS: HYDROCODONE/APAP 5/325 MG TABLET 1 TAB PO ×2 (05:57→14:38)
[2024-08-11 05:59] LABS: Microscopic, Urine URINE MICROSCOPIC (MICROSCOPIC)
[2024-08-11 06:05] LABS: Appearance,Urine CLEAR (Clear); Bilirubin,Urine Negative (Negative); Blood, Urine Negative (Negative); Color,Urine YELLOW (Yellow); Glucose,Urine (UA) 1+ (Negative); Ketones,Urine Negative (Negative); Leukocyte Esterase,Urine Negative (Negative); Nitrate,Urine Negative (Negative); Protein,Urine TRACE (Negative); Specific Gravity, Urine 1.025 (1.005-1.030); Urobilinogen,Urine 0.2 EU/dl (0.2)
[2024-08-11 06:11] LABS: Bacteria,Urine Trace /lpf; RBC,Urine Occasional #/hpf (0-3); WBC,Urine Occasional #/hpf (0-3)
[2024-08-11 06:17] LABS: Basophils % 0.2 % (0.1-2.0); Eosinophils # 0.2 Kmm3 (0.0-0.4); Hematocrit 36.2 % (42.0-52.0); Hemoglobin 11.4 g/dL (14.1-18.0); Lymphocytes # 1.2 K/mm3 (0.7-4.5); Lymphocytes % 6.2 % (10-50); Mean Corpuscular HGB Conc 31.5 g/dL (31.8-35.4); Mean Corpuscular Hemoglobin 25.4 pg (27.0-31.2); Mean Corpuscular Volume 80.6 fl (80-94); Mean Platelet Volume 9.6 fl (7.4-10.4); Monocytes # 1.2 K/mm3 (0.1-1.0); Neutrophils # 16.4 K/mm3 (1.8-7.8); Nucleated Red Blood Cells # 0 10^3/uL; Nucleated Red Blood Cells % 0 %; Platelet Count 177 K/mm3 (142-424); Red Blood Count 4.49 M/mm3 (4.60-6.20); Red Cell Distribution Width 16.7 % (11.5-17.5); Red Cell Distribution Width-SD 47.9 fL; White Blood Count 19.1 K/mm3 (4.8-10.8)
[2024-08-11 06:17] LABS: Amphetamine/Metha Screen,Urine Negative ng/ml (<1000)
[2024-08-11 06:18] LABS: Barbiturates Screen,Urine Negative ng/ml (<200); Benzodiazepines Screen,Urine Negative ng/ml (<200)
[2024-08-11 06:19] LABS: Cannabinoid Screen,Urine Negative ng/ml (<50)
[2024-08-11 06:20] LABS: Cocaine Screen,Urine Negative ng/ml (<300); Methadone Screen,Urine Negative ng/ml (<300)
[2024-08-11 06:21] LABS: Opiate Screen,Urine Positive ng/ml (<300)
[2024-08-11 06:22] LABS: Phencyclidine Screen,Urine Negative ng/ml (<25)
--- NOTE | 2024-08-11 06:22 | PC.WOUNDNOTE ---
right lower extremity
--- NOTE | 2024-08-11 06:22 | PC.WOUNDNOTE ---
left lower extremity
[2024-08-11 06:25] LABS: Lactic Acid Follow Up (RFLX 1) 0.8 mmol/L (0.7-2.1)
[2024-08-11 06:27] LABS: Albumin Level 3.3 g/dl (3.5-5.0); Chloride 93 mmol/L (98-107); Potassium 4.8 mmoL/L (3.5-5.1); Sodium 130 mmol/L (136-145)
[2024-08-11 06:29] LABS: Anion Gap 8.8 mEq/L (5-15); Blood Urea Nitrogen 38 mg/dl (9-20); Carbon Dioxide 33 mmol/L (22.0-30.0); Creatinine Clearance Estimated 69 mL/min (50-200); Estimated Glomerular Filt Rate 39 ml/min (>60); GFR (African American) 47 ML/MIN (>60)
[2024-08-11 06:30] LABS: Alanine Aminotransferase 24 U/L (12-78); Albumin/Globulin Ratio 1.4 (1.1-1.8); Alkaline Phosphatase 65 U/L (38-126); Aspartate Amino Transferase 18 U/L (17-59); Bilirubin,Total 1.1 mg/dl (0.2-1.3); Calcium 8.6 mg/dl (8.4-10.2); Globulin 2.4 g/dL (1.3-3.2); Glucose 204 mg/dl (74-100); Magnesium 1.7 mg/dl (1.6-2.3); Total Protein,Serum 5.7 g/dl (6.3-8.2)
--- NOTE | 2024-08-11 07:28 | EXP.PHA.CONS ---
Pharmacy Consult Date: 08/11/24 Time: 07:28 Referring provider: DR. LEWIS Reason for Consult:: VANCOMYCIN DOSING Allergies Allergy/AdvReac Type Severity Reaction Status Date / Time No Known Allergies Allergy Verified 08/11/24 01:40 New Prescriptions to Start Prescriptions: Height: 1.68 m Weight: 112.173 kg Laboratory Results:: Laboratory Results - last 24 hr 08/11/24 00:55: POC Glucose 240 H 08/11/24 01:02: WBC 24.3 H*, RBC 4.74, Hgb 12.2 L, Hct 37.7 L, MCV 79.5 L, MCH 25.7 L, MCHC 32.4, RDW 16.7, Plt Count 219, MPV 9.8, Neut % (Auto) 90.3 H, Lymph % (Auto) 3.4 L, [place] % (Auto) 4.9, Eos % (Auto) 0.5, Baso % (Auto) 0.2, Neut # (Auto) 22.0 H, Lymph # (Auto) 0.8, [place] # (Auto) 1.2 H, Eos # (Auto) 0.1, Baso # (Auto) 0.0, Total Counted 100, Neutrophils % (Manual) 91 H, Lymphocytes % (Manual) 7 L, Monocytes % (Manual) 1 L, Eosinophils % (Manual) 1, Platelet Estimate Normal, RBC Morphology Normal, Sodium 129 L, Potassium 5.7 H, Chloride 91 L, Carbon Dioxide 34 H, Anion Gap 9.7, BUN 46 H, Creatinine 2.00 H, Estimated Creat Clear 60, Estimated GFR 34 L, Est GFR ( Amer) 41 L, Glucose 229 H, Calcium 8.5, Total Bilirubin 1.2, AST 24, ALT 30, Alkaline Phosphatase 70, Troponin I 0.04 H, NT-Pro-B Natriuret Pep 1000 H, Total Protein 6.2 L, Albumin 3.8, Globulin 2.4, Albumin/Globulin Ratio 1.6, Plasma/Serum Alcohol < 10 08/11/24 01:05: VBG pH 7.37, VBG pCO2 49.8, VBG pO2 46.1 H, VBG HCO3 28.3, VBG Total CO2 29.8 H, VBG O2 Saturation 80.1 H, VBG Base Excess 3.0 H, VBG Lactic Acid 2.1 H 08/11/24 03:53: VBG pH 7.38, VBG pCO2 48.4, VBG pO2 116.9 H, VBG HCO3 28.2, VBG Total CO2 29.7 H, VBG O2 Saturation 98.2 H, VBG Base Excess 3.2 H, VBG Lactic Acid 1.7 08/11/24 04:09: Troponin I 0.04 H 08/11/24 05:55: Urine Color Yellow, Urine Appearance Clear, Urine pH 6.0, Ur Specific [place] 1.025, Urine Protein Trace, Urine Glucose (UA) 1+, Urine Ketones Negative, Urine Blood Negative, Urine Nitrate Negative, Urine Bilirubin Negative, Urine Urobilinogen 0.2, Ur Leukocyte Esterase Negative, Urine RBC Occasional, Urine WBC Occasional, Ur Squamous Epith Cells 3-5, Urine Bacteria Trace, Hyaline Casts 3-5, Urine Opiates Screen Positive H, Urine Methadone Screen Negative, Ur Barbituates Screen Negative, Ur Phencyclidine Scrn Negative, Ur Amphetamines Screen Negative, U Benzodiazepines Scrn Negative, Urine Cocaine Screen Negative, U Marijuana (THC) Screen Negative 08/11/24 06:02: WBC 19.1 H, RBC 4.49 L, Hgb 11.4 L, Hct 36.2 L, MCV 80.6, MCH 25.4 L, MCHC 31.5 L, RDW 16.7, Plt Count 177, MPV 9.6, Neut % (Auto) 86.0 H, Lymph % (Auto) 6.2 L, [place] % (Auto) 6.0, Eos % (Auto) 1.0, Baso % (Auto) 0.2, Neut # (Auto) 16.4 H, Lymph # (Auto) 1.2, [place] # (Auto) 1.2 H, Eos # (Auto) 0.2, Baso # (Auto) 0.0, Sodium 130 L, Potassium 4.8, Chloride 93 L, Carbon Dioxide 33 H, Anion Gap 8.8, BUN 38 H, Creatinine 1.80 H, Estimated Creat Clear 69, Estimated GFR 39 L, Est GFR ( Amer) 47 L, Glucose 204 H, Lactate 0.8, Calcium 8.6, Magnesium 1.7, Total Bilirubin 1.1, AST 18, ALT 24, Alkaline Phosphatase 65, Total Protein 5.7 L, Albumin 3.3 L D, Globulin 2.4, Albumin/Globulin Ratio 1.4 Assessment and Plan Assessment and plan all Dx Assessment and Plan for all problems:: Pharmacokinetic dosing service Objective: Patient: Floor: Age: 58 yo Serum creatinine: 1.8 mg/dL Height: 66.1 Inches Weight (kg): 112 Diagnosis: Relevant medical/social history: Cultures and sensitivities: Other labs: Assessment: IBW (kg): 64.03 Dosing wt(kg): 112 Estimated Creatinine clearance (ml/min): 39.5 CRCL method: Cockcroft and Gault using ibw(default). Drug selected: Vancomycin Loading dose (mg): 0 Vd (liters): 89.6 (factor used: 0.8 L/kg) Ricardo (hr-1): 0.037 Half life (hrs): 18.73 Recommended dose: 1750 mg Interval: 24 hrs Infusion time (hrs): 2.0 Predicted peak (mcg/mL): 32.0 Predicted trough (mcg/mL): 14.18 Total body weight is being used for vancomycin dosing. Recommendations: Give Vancomycin 1750 mg q 24 hrs with an expected Cpeak of 32.0 mcg/ml and an expected Ctrough of 14.18 mcg/ml ----Vanco only - ignore for aminoglycosides----- CLvanco= 3.32 L/hr AUC 0-24 /SHIRA Data: SHIRA 0.5 mcg/mL: AUC/SHIRA: 1054.2 SHIRA 1.0 mcg/mL: AUC/SHIRA: 527.1 --------- SHIRA 1.5 mcg/mL: AUC/SHIRA: 351.4 SHIRA 2.0 mcg/mL: AUC/SHIRA: 263.6
[2024-08-11] MEDS: DEFINITY US ECHO CONTRAST 2ML INJ 2 MG IV (07:37)
[2024-08-11 08:03] LABS: Troponin I 0.04 ng/ml (0.00-0.034)
[2024-08-11] MEDS: ACETAMINOPHEN 325MG TAB 650 MG PO ×2 (08:42→17:22)
[2024-08-11] MEDS: HEPARIN SODIUM 5,000 UNIT/ML VIAL 5000 UNIT SUBCUT ×3 (08:43→21:51)
--- NOTE | 2024-08-11 09:21 | HMH.PHAINT1 ---
Pharmacy Intervention Comments: VERIFIED HOME MEDICATON LIST USING LIST FROM [facility], PT UNABLE TO CONFIRM ANY MEDS AT THIS TIME
--- NOTE | 2024-08-11 09:59 | HMH.OTEV ---
OT Inpatient Evaluation Rehab OT IP Evaluation Start: 08/11/24 06:06 Freq: ONCE Status: Active Protocol: [facility] 08/11/24 09[facility] (Rec: 08/11/24 09:58 [facility] [id number]) Rehab OT IP Assessment Subjective History Pt oriented x 3 on arrival. Pt agreeable to engage in therapy evaluation. Pt admitted on 08/11/24 due to fall. History and physical: 58-year-old male presents to the ER via EMS. Reportedly patient has had multiple falls recently and reports being unsteady on his feet over the last few days to weeks. He states he is fallen multiple times in the last few days. Allegedly he has been to [facility] recently for similar complaints. Reportedly patient had a mechanical fall tonight. He states he gets dizzy, blacks out, then falls. He states he has struck his head. His loss of consciousness was brief. It is never associated with chest pain or vomiting. Patient denies being short of breath but was placed on oxygen by EMS, he does not wear oxygen at home. He states he does smoke and use marijuana and has a history of COPD with inhaler use. He reports having heart problems but cannot elaborate on this any further. He denies taking a diuretic pill. Patient is overall a poor historian. He denies any recent illness, no fevers or chills, no chest pain, no nausea, vomiting, or abdominal pain. He reports he is having right rib pain and states a few years ago he broke his ribs and thinks he may have cracked 1 again. He also complains of right ankle pain. Subjective Prior to being in the hospital , pt lived at home with his . Pt claims normally he is independent with all ADLs and IADLs. He does use a cane during functional transfers. Pt also still drives. Pt demonstrates impulsivity during functional evaluation requiring mod/max verbal cues for re-education on safety. Objective Patient Orientation Person,Place,Birthday Right Upper Extremity Gross ROM WFL Left Upper Extremity Gross ROM WFL Bed Mobility bed mobility-scooting Assist Level Minimal x 1 (25% assist) Transfer Training Sit/Stand Transfer Assist Level Contact Guard/Hand Hold Chair Transfer Ability Contact Guard/Hand Hold Chair Transfer Technique Sit to/from Ambulatory Chair Transfer Assistive Devices Rolling Walker Lower Body Dressing Ability Minimal Assistance Rehab OT IP prob,goals,plan Problems Date of Evaluation: 08/11/24 OT IP Problems Bed Mobility,Transfers,Balance ,Self care,Safety Rehab Potential Rehab Potential Good Equipment Needs Assistive Devices Rolling / Wheeled Walker Plan OT intervention Plan Bed Mobility,Transfers,Balance ,Self care,Safety,Therapeutic Exercise OT Plan Frequency Daily Duration LOS Discharge Goals Bed Mobility Ability Standby Assistance Sit to Stand Chair Transfer Ability Supervision/Stand by Chair Transfer Ability Supervision/Stand by,Contact Guard/Hand Hold Chair Transfer Technique Sit to/from Ambulatory Chair Transfer Assistive Devices Rolling Walker Feeding Ability Assist with Tray Set Up Lower Body Dressing Ability Contact Guard Upper Body Dressing Ability Standby Assistance Bathing Ability Minimal Assistance Performing Toilet Hygiene Ability Standby Assistance Overall Commode/Toilet Transfer Ability Standby Assistance Commode/Toilet Transfer Technique Sit to/from Ambulatory Discharge Plan OT Discharge Plan At this time, pt is most appropriate to discharge home with HH OT evaluation for continued skilled therapy. Pt will continue to be seen for OT services while at [facility] in order to improve strength, safety, endurance, ADL independence, and functional transfers to reach OF. Eval Complexity Eval Charge Codes 47175 - Moderate Complexity PHYSICIAN CERTIFICATION: I certify the specified therapy services for Scott Dawson are required, authorized, and reviewed every 30 days.
[2024-08-11] MEDS: SODIUM CHLORIDE 3% 15ML NEB 3 ML IH (10:10)
[2024-08-11 10:25] LABS: Troponin I 0.04 ng/ml (0.00-0.034)
--- NOTE | 2024-08-11 10:35 | HMH.PTEV ---
Physical Therapy Evaluation Rehab PT IP Evaluation Start: 08/11/24 06:11 Freq: ONCE Status: Active Protocol: Document 08/11/24 09:15 PHOWILL (Rec: 08/11/24 10:35 PHORNE [id number]) Subjective/History History History 58-year-old male presents to the ER via EMS. Reportedly patient has had multiple falls recently and reports being unsteady on his feet over the last few days to weeks. Reportedly patient had a mechanical fall tonight. He states he gets dizzy, blacks out, then falls. He states he does smoke and use marijuana and has a history of COPD with inhaler use. He reports having heart problems but cannot elaborate on this any further. Pt states that he lives at home with his and is independent with all ADLs and mobility at baseline. Pt states he uses a cane, but will be using a walker now. Subjective Subjective Pt presents laying supine in bed. He is willing to participate with PT/OT this am . He verbally expresses that he is having pain along his right ribs and side. Pt is impulsive with mobility. He moved to bedside chair with call light in reach, SpO2 97% at end of session. [facility] How much help from another person do you currently need... Turning from your back to your side None while in a flat bed without using bedrails? Moving from lying on back to sitting on A little the side of a flat bed without using bedrails? Moving to and from a bed to a chair ( None including a wheelchair)? Standing up from a chair using your arms A little ? (e.g., wheelchair, bedside chair) Walking in hospital room? None Climbing 3-5 steps with a railing? None Mobility Score 22 Mobility Level [facility] Mobility Calculator Mobility 7 Walk 25 feet or more Rehab PT IP Eval Objective Appearance Patient Behavior Appropriate,Impulsive Patient Orientation Person Difficulty following instructions mild Speech Pattern Clear,Appropriate,Coherent Ambulation Patient Able to Ambulate Yes Ambulation Observation IP General Gait Pattern Observation Wide Based Gait Ambulation Distance (feet) 20 Ambulation Assistive Device Rolling Walker Ambulation Ability Contact Guard/Hand Hold Balance Ability to Arise Able, uses arms to help Sitting Balance Steady, safe Standing Balance Steady, wide stance Dynamic Sitting Balance Ability Normal Dynamic Standing Balance Ability Normal Transfers Bed Transfer Ability Minimal x 1 (25% assist) Chair Transfer Ability Contact Guard/Hand Hold Sit to Stand Bed Transfer Ability Contact Guard/Hand Hold Sit to Stand Chair Transfer Ability Contact Guard/Hand Hold Rehab PT IP prob,goals,plan Problems Date of Evaluation: 08/11/24 PT IP Problems Bed Mobility,Transfers,Gait, Safety Rehab Potential Rehab Potential Good Plan PT Intervention Plan Bed Mobility,Transfers,Gait, Safety,Therapeutic Exercise PT Plan Frequency Daily Duration LOS Discharge Goals Bed Transfer Ability Independent Sit to Stand Chair Transfer Ability Independent Ambulation Distance (feet) 50 Discharge Plan PT Discharge Plan Patient is currently most appropriate to return home once medically stable for d/c with family support. Patient is able to ambulate independently, but is impulsive and is at a risk of falling. Pt required minimal assistance for bed mobility due to pain in right side. Skilled acute therapy is currently indicated to improve LE strength, balance, and safety awareness to return to PLOF with all ADLs, ambulation , and decrease fall risk. Eval Complexity Eval Charge Codes 96735 - High Complexity PHYSICIAN CERTIFICATION: I certify the specified therapy services for Scott Dawson are required, authorized, and reviewed every 30 days.
--- NOTE | 2024-08-11 13:02 | P.CONCA_ITS ---
History of Present Illness History of Present Illness Consult date: 08/11/24 Requesting physician: Orlin Wagner Chief complaint: syncope History of present illness: This is a 58-year-old white male with past medical history of hypertension, hyperlipidemia and diabetes mellitus who presented to emergency department with complaints of multiple recent falls and right rib and ankle pain after blacking out and falling. Of note patient was recently evaluated at [place] in [place] for similar complaints. initial EKG shows sinus tachycardia at a rate of 100 without acute ischemic changes noted. Labs as follow: WBC 24.3, hemoglobin 12.2, sodium 129, potassium 5.7, creatinine 2, initial troponin 0.04 and a proBNP of 1000. CT scans of neck and head are negative for acute process. Xray of ankle is negative. Chest x-ray and chest CT consistent with bilateral infiltrates concerning for pneumonia. Patient was admitted for falls, pneumonia and sepsis. Cardiology was asked to evaluate for elevated troponin and proBNP. Patient denies chest pain or shortness of breath this morning. Reports he recently was told he has a blockage in his heart but unsure if he received stenting. [facility] Disclaimer: The information contained in this section may have been updated after the patient was seen, as this information can be updated by other users. Social History (Updated 08/11/24 @ 04:51 by Radha Cagle MD) Smoking Status: Never smoker alcohol intake: former current occupational status: employed Travel in the last 8 weeks?: None Review of Systems Review of Systems Review of systems:: pertinent systems reviewed and negative unless documented below Constitutional Comments: Falls Exam Data for Last 24 hours Vital signs and Labs for Last 24 Hours: Temp Pulse Resp BP Pulse Ox O2 Del Method O2 Flow Rate 98.1 F 75 16 132/64 96 Nasal Cannula 2 08/11/24 12:00 08/11/24 12:00 08/11/24 12:00 08/11/24 12:00 08/11/24 12:00 08/11/24 07:44 08/11/24 06:40 Laboratory Results - last 24 hr 08/11/24 00:55: POC Glucose 240 H 08/11/24 01:02: WBC 24.3 H*, RBC 4.74, Hgb 12.2 L, Hct 37.7 L, MCV 79.5 L, MCH 25.7 L, MCHC 32.4, RDW 16.7, Plt Count 219, MPV 9.8, Neut % (Auto) 90.3 H, Lymph % (Auto) 3.4 L, [place] % (Auto) 4.9, Eos % (Auto) 0.5, Baso % (Auto) 0.2, Neut # (Auto) 22.0 H, Lymph # (Auto) 0.8, [place] # (Auto) 1.2 H, Eos # (Auto) 0.1, Baso # (Auto) 0.0, Total Counted 100, Neutrophils % (Manual) 91 H, Lymphocytes % (Manual) 7 L, Monocytes % (Manual) 1 L, Eosinophils % (Manual) 1, Platelet Estimate Normal, RBC Morphology Normal, Sodium 129 L, Potassium 5.7 H, Chloride 91 L, Carbon Dioxide 34 H, Anion Gap 9.7, BUN 46 H, Creatinine 2.00 H, Estimated Creat Clear 60, Estimated GFR 34 L, Est GFR ( Amer) 41 L, Glucose 229 H, Calcium 8.5, Total Bilirubin 1.2, AST 24, ALT 30, Alkaline Phosphatase 70, Troponin I 0.04 H, NT-Pro-B Natriuret Pep 1000 H, Total Protein 6.2 L, Albumin 3.8, Globulin 2.4, Albumin/Globulin Ratio 1.6, Plasma/Serum Alcohol < 10 08/11/24 01:05: VBG pH 7.37, VBG pCO2 49.8, VBG pO2 46.1 H, VBG HCO3 28.3, VBG Total CO2 29.8 H, VBG O2 Saturation 80.1 H, VBG Base Excess 3.0 H, VBG Lactic Acid 2.1 H 08/11/24 03:53: VBG pH 7.38, VBG pCO2 48.4, VBG pO2 116.9 H, VBG HCO3 28.2, VBG Total CO2 29.7 H, VBG O2 Saturation 98.2 H, VBG Base Excess 3.2 H, VBG Lactic Acid 1.7 08/11/24 04:09: Troponin I 0.04 H 08/11/24 05:55: Urine Color Yellow, Urine Appearance Clear, Urine pH 6.0, Ur Specific [place] 1.025, Urine Protein Trace, Urine Glucose (UA) 1+, Urine Ketones Negative, Urine Blood Negative, Urine Nitrate Negative, Urine Bilirubin Negative, Urine Urobilinogen 0.2, Ur Leukocyte Esterase Negative, Urine RBC Occasional, Urine WBC Occasional, Ur Squamous Epith Cells 3-5, Urine Bacteria Trace, Hyaline Casts 3-5, Urine Opiates Screen Positive H, Urine Methadone Screen Negative, Ur Barbituates Screen Negative, Ur Phencyclidine Scrn Negative, Ur Amphetamines Screen Negative, U Benzodiazepines Scrn Negative, Urine Cocaine Screen Negative, U Marijuana (THC) Screen Negative 08/11/24 06:02: WBC 19.1 H, RBC 4.49 L, Hgb 11.4 L, Hct 36.2 L, MCV 80.6, MCH 25.4 L, MCHC 31.5 L, RDW 16.7, Plt Count 177, MPV 9.6, Neut % (Auto) 86.0 H, Lymph % (Auto) 6.2 L, [place] % (Auto) 6.0, Eos % (Auto) 1.0, Baso % (Auto) 0.2, Neut # (Auto) 16.4 H, Lymph # (Auto) 1.2, [place] # (Auto) 1.2 H, Eos # (Auto) 0.2, Baso # (Auto) 0.0, Sodium 130 L, Potassium 4.8, Chloride 93 L, Carbon Dioxide 33 H, Anion Gap 8.8, BUN 38 H, Creatinine 1.80 H, Estimated Creat Clear 69, Estimated GFR 39 L, Est GFR ( Amer) 47 L, Glucose 204 H, Lactate 0.8, Calcium 8.6, Magnesium 1.7, Total Bilirubin 1.1, AST 18, ALT 24, Alkaline Phosphatase 65, Total Protein 5.7 L, Albumin 3.3 L D, Globulin 2.4, Albumin/Globulin Ratio 1.4 08/11/24 07:35: Troponin I 0.04 H 08/11/24 09:55: Troponin I 0.04 H I & O for Last 24 hours: Intake & Output 08/08/24 08/09/24 08/10/24 08/11/24 23:59 23:59 23:59 23:59 Intake Total 360 / 360 Output Total 1700 / 1700 Balance -1340 / -1340 Weight 247 lb 4.8 oz Constitutional Constitutional: no acute distress *Routine Respiratory Exam Respiratory: Present CTA bilaterally and symmetric chest movement *Routine Cardiovascular Exam Cardiovascular: Present RRR, Normal S1 and Normal S2 *Routine Abdominal Exam Abdominal: Present soft and normoactive bowel sounds; Absent tenderness *Routine Extremities Exam Extremities: Present full ROM and normal capillary refill; Absent edema *Routine Skin Exam Skin: Present intact, dry and warm Detailed Neck Exam: Thyroids Thyroid: Absent bruit Meds Home Medications and Allergies Home Medications ?Medication ?Instructions ?Recorded ?Confirmed ?Type albuterol sulfate 90 mcg/actuation 2 puff inhalation Q6HP PRN Wheezing 08/11/24 08/11/24 History aerosol inhaler amlodipine 10 mg tablet 10 mg PO DAILY 08/11/24 08/11/24 History atorvastatin 80 mg tablet 80 mg PO HS 08/11/24 08/11/24 History budesonide-formoterol HFA 160 2 puff inhalation BID 08/11/24 08/11/24 History mcg-4.5 mcg/actuation aerosol inhaler (Symbicort) carvedilol 12.5 mg tablet 12.5 mg PO BID 08/11/24 08/11/24 History dapagliflozin propanediol 10 mg 10 mg PO DAILY 08/11/24 08/11/24 History tablet (Farxiga) duloxetine 60 mg capsule,delayed 60 mg PO DAILY 08/11/24 08/11/24 History release furosemide 40 mg tablet 40 mg PO DAILY 08/11/24 08/11/24 History gabapentin 800 mg tablet 800 mg PO TID 08/11/24 08/11/24 History insulin glargine 100 unit/mL (3 30 unit SQ BID 08/11/24 08/11/24 History mL) subcutaneous pen (Lantus Solostar U-100 Insulin) lancets (Accu-Chek Softclix 08/11/24 08/11/24 History Lancets) lisinopril 40 mg tablet 40 mg PO DAILY 08/11/24 08/11/24 History spironolactone 25 mg tablet 25 mg PO DAILY 08/11/24 08/11/24 History trazodone 100 mg tablet 100 mg PO HS 08/11/24 08/11/24 History New Prescriptions to Start Prescriptions: Allergies Allergy/AdvReac Type Severity Reaction Status Date / Time No Known Allergies Allergy Verified 08/11/24 01:40 Assessment and Plan *Assessment and plan (1) Sepsis: Status: Acute Category: Medical Code(s): A41.9 - Sepsis, unspecified organism (2) Pneumonia: Status: Acute Category: Medical Code(s): J18.9 - Pneumonia, unspecified organism (3) Fall: Status: Acute Category: Medical Code(s): W19.XXXA - Unspecified fall, initial encounter (4) Syncope: Status: Acute Category: Medical Code(s): R55 - Syncope and collapse (5) Heart failure with reduced ejection fraction (HFrEF, <= 40%): Status: Acute Category: Medical Code(s): I50.20 - Unspecified systolic (congestive) heart failure (6) Elevated troponin: Status: Acute Category: Medical Code(s): R79.89 - Other specified abnormal findings of blood chemistry Plan Questionable syncope Multiple falls New onset HFrEF Elevated troponin EKG negative for STEMI Serial troponin 0.04 in the setting of acute illness Reports recently was told has blockages in coronaries but unsure if he has had stenting Echocardiogram today shows an EF of 30% with mild to moderate RV dilation and reduction in RV function. Mild MR/AI/TR Will plan for left heart catheterization to evaluate for coronary artery disease in the setting of elevated troponin and new HFrEF. Discussed risk versus benefits with patient he is agreeable to proceed Resume lasix 40mg po daily-will see if blood pressure will tolerate before adding additional guideline directed medical therapy. Patient will need LifeVest prior to discharge home- order placed Acute kidney injury Creatinine 2 on admission trending down to 1.8 today Sepsis Pneumonia Will defer antibiotics and treatments to primary service CV summary 08/11/2024: Echo shows an EF of 30%. LifeVest order placed. Start lasix 40mg IV and see how BP tolerates it. Will initiate GDMT if BP remains stable. Plan for left heart catheterization to further evaluate for CAD tomorrow. Cardiac meds: Atorvastatin 80 mg p.o. daily Lasix 40mg IV daily
[2024-08-11] MEDS: humaLOG 100 UNITS/ML 10ML VIAL (SSI) SUBCUT ×3 (13:14→21:59)
[2024-08-11 13:25] LABS: POC Glucose,Bedside 324 (70-110)
--- NOTE | 2024-08-11 13:55 | SW/DCPLANNER ---
Addendum entered by Krysta Blanchard 08/13/24 12:02: Per patient his address is [address] [place] [address] in [place]. RN (Karen) stated that she spoke w/ patient's via phone last night and she is aware that patient is discharging home today. Original Note: I attempted to contact patient's at [phone] regarding discharge planning. No answer at this time VM left.
[2024-08-11] MEDS: FUROSEMIDE 40MG/4ML VIAL 40 MG IV (14:43)
--- NOTE | 2024-08-11 16:42 | PC.NURSE ---
pt has became more oriented this afternoon. He has started to get more agitated this afternoon and requesting to be transfered to [facility] because that is where his pet training instructor is. has been made aware. Pt has asked to talk to his multiple times this shift. Care team has attempted multiple times to try and get a hold of his and so has the patient with no answer. Pt has been medicated per mar for pain.
[2024-08-11 17:31] LABS: POC Glucose,Bedside 380 (70-110)
[2024-08-11] MEDS: OXYCODONE 5MG W/APAP 325MG TABLET 1.5 EACH PO (18:45)
[2024-08-11] MEDS: IPRATROPIUM/ALBUTEROL 3 ML NEB IH ×2 (18:51→23:29)
--- NOTE | 2024-08-11 20:21 | ECG_ITS ---
APPROVED REPORT Exam: Resting ECG HR:75 bpm ECG Measurements Heart Rate 75 AXES QRSd 101 QRS 19 QT 366 T 57 QTc 396 Conclusion ATRIAL FLUTTER/FIB Late r wave progresson - old Q in III ABNORMAL ECG UNCONFIRMED REPORT Electronically signed by : Tyler Johnson MD 08/12/2024 11:31:39
--- NOTE | 2024-08-11 20:32 | PC.NURSE ---
Provider notified at 0810 for pt in [address] elevation on tele strip. Orders placed, 12 lead EKG revealed a flutter/tach. Provider stated he was fine with that, no new orders placed. Pt denied chest pain. Pt pending heart cath tomorrow for 1100. will continue to monitor pt for changes on tele.
[2024-08-11] MEDS: GABAPENTIN 800MG TABLET 800 MG PO (21:51)
[2024-08-11] MEDS: ATORVASTATIN 40MG TABLET 80 MG PO (21:51)
[2024-08-11] MEDS: INSULIN GLARGINE 100 UNITS/ML 3ML FLEXPEN 30 UNIT SUBCUT (21:52)
[2024-08-11 22:03] LABS: POC Glucose,Bedside 268 (70-110)
[2024-08-11] MEDS: VANCOMYCIN/WATER FOR INJ (PEG) 1.75 GM/350 ML PIGGYBACK IV (23:51)
[2024-08-12] VITALS (22 sets, daily range): BP systolic 119–149; BP diastolic 64–88; PULSE 51–120; RESP 13–18; TEMP 36.6–37.3; O2SAT 91–99; BMI 39.7
[2024-08-12] MEDS: OXYCODONE 5MG W/APAP 325MG TABLET 1.5 EACH PO (02:40)
[2024-08-12] MEDS: PIPERACILLIN/TAZO 4.5 GM in 0.9 % SODIUM CHLORIDE 100 ML IV ×4 (05:00→23:10)
--- NOTE | 2024-08-12 05:41 | PC.NURSE ---
Pt NPO at midnight for possible heart cath. V/s, ox4. Pt had what appeared to be ST elevation on tele, provider was notified, ekg ordered. Provider stated he was ok with rhythm from EKG. Blood glucose monitored. Pt c/o pain, treated per JUN. Plan of care ongoing.
[2024-08-12] MEDS: IPRATROPIUM/ALBUTEROL 3 ML NEB IH ×3 (05:56→18:10)
[2024-08-12 06:08] LABS: Basophils % 0.3 % (0.1-2.0); Eosinophils # 0.3 Kmm3 (0.0-0.4); Eosinophils % 1.7 % (0.1-12.0); Hematocrit 40.5 % (42.0-52.0); Lymphocytes # 0.7 K/mm3 (0.7-4.5); Lymphocytes % 4.6 % (10-50); Mean Corpuscular HGB Conc 31.4 g/dL (31.8-35.4); Mean Corpuscular Hemoglobin 25.5 pg (27.0-31.2); Mean Corpuscular Volume 81.2 fl (80-94); Mean Platelet Volume 10.2 fl (7.4-10.4); Monocytes # 1.2 K/mm3 (0.1-1.0); Monocytes % 7.6 % (1.7-9.3); Neutrophils # 13.1 K/mm3 (1.8-7.8); Nucleated Red Blood Cells # 0 10^3/uL; Nucleated Red Blood Cells % 0 %; Platelet Count 184 K/mm3 (142-424); Red Blood Count 4.99 M/mm3 (4.60-6.20); Red Cell Distribution Width 16.8 % (11.5-17.5); Red Cell Distribution Width-SD 48.7 fL; White Blood Count 15.4 K/mm3 (4.8-10.8)
[2024-08-12 06:14] LABS: Hemoglobin 12.8 g/dL (14.1-18.0)
[2024-08-12 06:16] LABS: Alanine Aminotransferase 27 U/L (12-78); Albumin Level 4.1 g/dl (3.5-5.0); Albumin/Globulin Ratio 1.6 (1.1-1.8); Alkaline Phosphatase 90 U/L (38-126); Anion Gap 9.2 mEq/L (5-15); Aspartate Amino Transferase 24 U/L (17-59); Bilirubin,Total 1.1 mg/dl (0.2-1.3); Blood Urea Nitrogen 30 mg/dl (9-20); Calcium 9.5 mg/dl (8.4-10.2); Carbon Dioxide 31 mmol/L (22.0-30.0); Chloride 94 mmol/L (98-107); Creatinine Clearance Estimated 138 mL/min (50-200); Estimated Glomerular Filt Rate 86 ml/min (>60); GFR (African American) 104 ML/MIN (>60); Globulin 2.6 g/dL (1.3-3.2); Glucose 179 mg/dl (74-100); Magnesium 1.7 mg/dl (1.6-2.3); Potassium 5.2 mmoL/L (3.5-5.1); Sodium 129 mmol/L (136-145); Total Protein,Serum 6.7 g/dl (6.3-8.2)
[2024-08-12] MEDS: humaLOG 100 UNITS/ML 10ML VIAL (SSI) SUBCUT ×2 (06:27→21:47)
[2024-08-12 06:29] LABS: POC Glucose,Bedside 198 (70-110)
--- NOTE | 2024-08-12 07:08 | IR_ITS ---
APPROVED REPORT Patient Location: Inpatient Process Control Board Operator: Chano Issa, RT (R) PROCEDURES Left heart catheterization Left ventriculogram Selective coronary angiogram Drug-eluting stent deployment to the ostial proximal and mid right coronary artery INDICATION Acute non-ST elevation myocardial infarction, Coronary artery disease Informed consent was obtained prior to the procedure. COMPLICATIONS NONE Estimated Blood Loss: LESS THAN 10 ML TECHNIQUE One percent lidocaine used to anesthetize the right anterior aspect of the wrist. The right radial artery was accessed via the Seldinger technique. A 6 Egyptian sheath was placed in the right radial artery. 2.5 mg of Verapamil, 800 mcg of nitroglycerin, 1mg Lidocaine and 5000 U Heparin were given through the arterial sheath. The JL 3 guide catheter was also used to perform left heart catheterization, left ventriculogram and selective coronary angiogram. At the end of the procedure therapeutic ACT was administered giving a therapeutic ACT and the guide catheter was placed on the right coronary followed by Choice PT extra-support wire distally. A 2.5 x 26 mm Du frontier stent was initially deployed at 18 jayleen reducing the stenosis. Additional 2.75 mm stent could not be delivered therefore guide liner was advanced which allowed the 2.75 x 38 mm Du frontier stent to be delivered proximal to the for stent yet still overlapping the for stent and deployed at 20 jayleen. The balloon was advanced and deployed at 20 jayleen into half of the 2.5 mm stent. A 4 mm x 8 mm noncompliant balloon was then deployed in the ostial proximal segment at 14 jayleen to post dilate. Excellent angiograph results were obtained with JUAN II flow being present at the beginning of the procedure and JUAN-3 flow at the end of the procedure. At the end procedure the apparatus was removed sheath was removed and hemostasis was achieved using TR banding patient was transferred to the postop putting in stable condition ANGIOGRAPHIC RESULTS The left main artery Normal The left anterior descending artery Has proximal 30% stenosis followed by additional 20 to 30% stenosis with an additional mid vessel 30% stenosis. The LAD is large and wraps the apex The circumflex artery Is dominant and gives rise to a large ramus intermedius which has 4 medium sized branches all with diffuse 10% luminal regularities. A high first obtuse marginal artery is medium in size and free of disease. The circumflex artery itself has a mid vessel 30% stenosis The right coronary artery Nondominant yet still large with a proximal 90% stenosis accompanied by JUAN II flow. Following revascularization the right coronary artery was widely patent with JUAN-3 flow The WALLACE ventriculogram reveals Normal 65% The left ventricular end-diastolic pressure 20 mmHg IMPRESSION Severe to critical disease in the proximal nondominant yet still large right coronary artery with successful stenting reducing the lesion to 0% with 2 contiguous drug-eluting stents improving flow from JUAN II to JUAN-3 flow Normal ejection fraction Coronary artery disease as described above Mildly elevated LVEDP PLAN 1. Effient and aspirin 2. LDL less than 55 achieved with high intensity statin 3. Avoidance of tobacco products 4. Risk factor modification 5. Cardiac rehabilitation Electronically signed by : Steven Cagle MD 08/12/2024 14:30:46
[2024-08-12] MEDS: GABAPENTIN 800MG TABLET 800 MG PO ×3 (08:35→21:05)
--- NOTE | 2024-08-12 09:22 | P.PN_ITS ---
Subjective Subjective Date: 08/12/24 Time: 08:00 Principal diagnosis: HFrEF, elevated trop, pneumonia Interval history: Patient doing well this morning. Sitting up in chair and denies chest pain. Reports shortness of air is improving. Vitals reviewed and stable. Morning labs reviewed. Exam Data for Last 24 hours Vital signs and Labs for Last 24 Hours: Temp Pulse Resp BP Pulse Ox O2 Del Method O2 Flow Rate 99.1 F 59 L 18 139/80 92 L Room Air 2 08/12/24 08:00 08/12/24 08:00 08/12/24 08:00 08/12/24 08:00 08/12/24 08:00 08/12/24 09:00 08/12/24 05:00 Laboratory Results - last 24 hr 08/11/24 09:55: Troponin I 0.04 H 08/11/24 13:14: POC Glucose 324 H* 08/11/24 17:21: POC Glucose 380 H* 08/11/24 21:49: POC Glucose 268 H 08/12/24 05:32: WBC 15.4 H, RBC 4.99, Hgb 12.8 L D, Hct 40.5 L, MCV 81.2, MCH 25.5 L, MCHC 31.4 L, RDW 16.8, Plt Count 184, MPV 10.2, Neut % (Auto) 85.0 H, Lymph % (Auto) 4.6 L, [place] % (Auto) 7.6, Eos % (Auto) 1.7, Baso % (Auto) 0.3, Neut # (Auto) 13.1 H, Lymph # (Auto) 0.7, [place] # (Auto) 1.2 H, Eos # (Auto) 0.3, Baso # (Auto) 0.0, Sodium 129 L, Potassium 5.2 H, Chloride 94 L, Carbon Dioxide 31 H, Anion Gap 9.2, BUN 30 H, Creatinine 0.90 D, Estimated Creat Clear 138, Estimated GFR 86, Est GFR ( Amer) 104 D, Glucose 179 H, Calcium 9.5, Magnesium 1.7, Total Bilirubin 1.1, AST 24 D, ALT 27, Alkaline Phosphatase 90, Total Protein 6.7, Albumin 4.1 D, Globulin 2.6, Albumin/Globulin Ratio 1.6 05/01/25 06:11: POC Glucose 198 H I & O for Last 24 hours: Intake & Output 08/09/24 08/10/24 08/11/24 08/12/24 23:59 23:59 23:59 23:59 Intake Total 1180 / 1180 0 / 0 Output Total 3600 / 3600 700 / 700 Balance -2420 / -2420 -700 / -700 Weight 247 lb 4.8 oz 247 lb 4.751 oz Microbiology Reports for the Last 24 Hours: Microbiology 08/11/24 02:19 Blood Blood Culture - Preliminary NO GROWTH AFTER 24 HOURS 08/11/24 02:23 Blood Blood Culture - Preliminary NO GROWTH AFTER 24 HOURS Progress Note: A&P Assessment and plan (1) Sepsis: Status: Acute (2) Pneumonia: Status: Acute (3) Fall: Status: Acute (4) Syncope: Status: Acute (5) Heart failure with reduced ejection fraction (HFrEF, <= 40%): Status: Acute (6) Elevated troponin: Status: Acute Assessment and Plan Assessment and Plan for All Diagnoses:: Questionable syncope Multiple falls New onset HFrEF Elevated troponin EKG negative for STEMI Serial troponin 0.04 in the setting of acute illness Reports recently was told has blockages in coronaries but unsure if he has had stenting Echocardiogram shows an EF of 30% with mild to moderate RV dilation and reduction in RV function. Mild MR/AI/TR [facility] pending Discussed risk versus benefits with patient he is agreeable to proceed Diuresing well, -3 L, continue lasix 40mg po daily Patient will need LifeVest prior to discharge home- order placed Acute kidney injury Creatinine 2 on admission trending down to 0.9 today Sepsis Pneumonia Will defer antibiotics and treatments to primary service CV summary 08/12/2024: Echo shows an EF of 30%. LifeVest order placed, fit is pending. Continue Lasix 40mg IV. Will initiate GDMT after diuresis. Left heart cath pending. Cardiac meds: Atorvastatin 80 mg p.o. daily Lasix 40mg IV daily
[2024-08-12] MEDS: diphenhydrAMINE 50MG/ML VIAL 50 MG IV (13:35)
[2024-08-12] MEDS: HEPARIN 1,000 UNITS/500ML NS (CATH LAB) 3000 UNIT IV (13:35)
[2024-08-12] MEDS: 0.9 % SODIUM CHLORIDE 500 ML 25 ML IV (13:35)
[2024-08-12] MEDS: FENTANYL 100MCG/2ML VIAL 50 MCG IV (13:45)
[2024-08-12] MEDS: MIDAZOLAM HCL 1MG/ML 5ML VIAL 1 MG IV (13:45)
[2024-08-12] MEDS: NITROGLYCERIN 800MCG/8ML SYR (CATH LAB) 800 MCG IA (13:46)
[2024-08-12] MEDS: VERAPAMIL 2.5MG/ML 2ML VIAL 2.5 MG IV (13:46)
[2024-08-12] MEDS: LIDOCAINE 1% 10ML MDV 10 ML IJ (13:47)
[2024-08-12] MEDS: HEPARIN 1,000 UNITS/ML 10ML VIAL (CATH LAB) 5000 UNIT IV (13:48)
[2024-08-12] MEDS: CLOPIDOGREL 300MG TABLET 600 MG PO (15:02)
[2024-08-12 16:26] LABS: POC Glucose,Bedside 142 (70-110)
--- NOTE | 2024-08-12 16:39 | PC.NURSE ---
pt resting supine in bed. heart cath today where he received 2 stents to the RCA. tolerating ra w/ sats >90%. pt was aggitated post cath, pulling at heart monitor leads, bp cuff and pulse ox. pt reoriented and calmed. pt now resting with eyes closed. respirations even and unlabored. no complaints of pain. bed alarm on for pt safety. call light within reach.
[2024-08-12] MEDS: IOPAMIDOL-370 (76%);100ML BOTTLE 125 ML IV (18:33)
[2024-08-12 18:40] LABS: CATHL Activated Clotting Time > 400 SEC (74-125)
[2024-08-12] MEDS: HEPARIN SODIUM 5,000 UNIT/ML VIAL 5000 UNIT SUBCUT (21:05)
[2024-08-12] MEDS: ATORVASTATIN 40MG TABLET 80 MG PO (21:05)
[2024-08-12] MEDS: VANCOMYCIN/WATER FOR INJ (PEG) 1.75 GM/350 ML PIGGYBACK IV (21:05)
[2024-08-12] MEDS: HYDROCODONE/APAP 5/325 MG TABLET 1 TAB PO (21:05)
--- NOTE | 2024-08-12 21:12 | EXP.ACUTE.PN ---
Subjective *Date: 08/12/24 *Time: 21:12 Interval history: Patient is an diuresis. Weaned to room air. Undergoing heart cath today. -2 L since admission with diuresis. White count improving. Still having right-sided flank pain. Cough nonproductive. Denies may chest pain or confusion. No nausea or vomiting. Medical Exam Vital signs and Labs for Last 24 Hours: Vital Signs Temp Pulse Pulse Resp BP Pulse Ox O2 Del Method 08/12/24 18:43 Room Air 08/12/24 18:40 78 18 137/84 94 L Room Air 08/12/24 18:12 75 08/12/24 18:12 75 08/12/24 18:12 94 L Room Air 08/12/24 17:40 73 16 135/78 95 Room Air 08/12/24 17:10 75 18 130/83 92 L Room Air 08/12/24 17:00 Room Air 08/12/24 16:40 78 16 140/75 92 L Room Air 08/12/24 16:10 78 16 136/75 98 Room Air 08/12/24 16:00 80 08/12/24 15:40 85 18 134/81 99 Nasal Cannula 08/12/24 15:25 98.1 F 76 18 149/88 H 93 L Nasal Cannula 08/12/24 15:10 100 H 18 119/66 95 Room Air 08/12/24 14:55 82 18 137/79 94 L Room Air 08/12/24 14:40 101 H 18 131/78 94 L Room Air 08/12/24 14:35 98 H 18 120/64 94 L Room Air 08/12/24 14:31 100 H 16 120/65 91 L Room Air 08/12/24 14:28 100 H 100 H 13 127/70 92 L Room Air 08/12/24 12:49 77 08/12/24 12:49 80 08/12/24 12:49 94 L Room Air 08/12/24 12:00 100 H 08/12/24 11:42 98.2 F 51 L 18 140/72 93 L Room Air 08/12/24 11:00 Room Air 08/12/24 09:00 Room Air 08/12/24 08:00 120 H 08/12/24 08:00 Room Air 08/12/24 08:00 99.1 F 59 L 18 139/80 92 L Room Air 08/12/24 06:02 Room Air 08/12/24 05:56 103 H 08/12/24 05:56 100 H 08/12/24 05:56 91 L Room Air 08/12/24 05:00 Nasal Cannula 08/12/24 03:55 97.9 F 94 H 18 143/68 H 92 L Room Air 08/12/24 02:34 Nasal Cannula 08/12/24 01:00 Nasal Cannula 08/11/24 23:57 76 16 127/73 92 L Room Air 08/11/24 23:33 85 08/11/24 23:33 84 08/11/24 23:00 Nasal Cannula O2 Flow Rate 08/12/24 18:43 08/12/24 18:40 08/12/24 18:12 08/12/24 18:12 08/12/24 18:12 08/12/24 17:40 08/12/24 17:10 08/12/24 17:00 08/12/24 16:40 08/12/24 16:10 08/12/24 16:00 08/12/24 15:40 2 08/12/24 15:25 2 08/12/24 15:10 08/12/24 14:55 08/12/24 14:40 08/12/24 14:35 08/12/24 14:31 08/12/24 14:28 08/12/24 12:49 08/12/24 12:49 08/12/24 12:49 08/12/24 12:00 08/12/24 11:42 08/12/24 11:00 08/12/24 09:00 08/12/24 08:00 08/12/24 08:00 08/12/24 08:00 08/12/24 06:02 08/12/24 05:56 08/12/24 05:56 08/12/24 05:56 08/12/24 05:00 2 08/12/24 03:55 08/12/24 02:34 2 08/12/24 01:00 2 08/11/24 23:57 08/11/24 23:33 08/11/24 23:33 08/11/24 23:00 2 Intake and Output 08/12/24 08/12/24 08/12/24 07:59 15:59 23:59 Intake Total 0 / 100 100 / 100 Output Total 700 / 1400 700 / 1400 Balance -700 / -1300 -600 / -1300 Intake: Intake, Oral Amount 0 / 0 Intake, Total IV Amount 100 / 100 Piperacillin/Tazo 4.5 gm In 0.9 100 / 100 % Sodium Chloride 100 ml @ 200 mls/hr IV Q6H [facility] Rx#:[id number] Output: Output, Urine Amount 700 / 1400 700 / 1400 Other: Number of Unmeasured Voids 1 Weight 112.172 kg Patient Weight 08/12/24 23:59 Weight 112.172 kg Laboratory Results - last 24 hr 08/11/24 21:49: POC Glucose 268 H 08/12/24 05:32: WBC 15.4 H, RBC 4.99, Hgb 12.8 L D, Hct 40.5 L, MCV 81.2, MCH 25.5 L, MCHC 31.4 L, RDW 16.8, Plt Count 184, MPV 10.2, Neut % (Auto) 85.0 H, Lymph % (Auto) 4.6 L, [place] % (Auto) 7.6, Eos % (Auto) 1.7, Baso % (Auto) 0.3, Neut # (Auto) 13.1 H, Lymph # (Auto) 0.7, [place] # (Auto) 1.2 H, Eos # (Auto) 0.3, Baso # (Auto) 0.0, Sodium 129 L, Potassium 5.2 H, Chloride 94 L, Carbon Dioxide 31 H, Anion Gap 9.2, BUN 30 H, Creatinine 0.90 D, Estimated Creat Clear 138, Estimated GFR 86, Est GFR ( Amer) 104 D, Glucose 179 H, Calcium 9.5, Magnesium 1.7, Total Bilirubin 1.1, AST 24 D, ALT 27, Alkaline Phosphatase 90, Total Protein 6.7, Albumin 4.1 D, Globulin 2.6, Albumin/Globulin Ratio 1.6 08/12/24 06:11: POC Glucose 198 H 08/12/24 14:00: Activated Clotting Time > 400 H* 08/12/24 16:14: POC Glucose 142 H I & O for Labs for Last 24 Hours: Intake & Output 08/09/24 08/10/24 08/11/24 08/12/24 23:59 23:59 23:59 23:59 Intake Total 1180 / 1180 100 / 100 Output Total 3600 / 3600 1400 / 1400 Balance -2420 / -2420 -1300 / -1300 Weight 112.173 kg 112.172 kg Microbiology Reports for the Last 24 Hours: Microbiology 08/11/24 02:19 Blood Blood Culture - Preliminary NO GROWTH AFTER 24 HOURS 08/11/24 02:23 Blood Blood Culture - Preliminary NO GROWTH AFTER 24 HOURS Constitutional: Present no acute distress, morbidly obese, chronically ill appearing and cooperative Head: Present normocephalic ENT: Present normal exam Comment:: Bruise right forehead Respiratory: Present normal respiratory effort; Absent rhonchi, wheezes or crackles Cardiac: Present Reg Rate and Rhythm GI: Present soft and normal bowel sounds; Absent distention or tenderness Extremities: Present normal inspection and full ROM Comment:: Stasis changes to lower extremities, trace ankle edema. Skin: Present intact; Absent erythema Comment:: Bruise along right flank and thigh Neuro: Present Grossly Intact, alert, awake, oriented x 3 and moves all extremities Assessment and Plan *Assessment and plan (1) Heart failure with reduced ejection fraction (HFrEF, <= 40%): Status: Acute Category: Medical Code(s): I50.20 - Unspecified systolic (congestive) heart failure (2) Sepsis: Status: Acute Category: Medical Code(s): A41.9 - Sepsis, unspecified organism (3) Pneumonia: Status: Acute Category: Medical Code(s): J18.9 - Pneumonia, unspecified organism (4) Fall: Status: Acute Category: Medical Code(s): W19.XXXA - Unspecified fall, initial encounter (5) Syncope: Status: Acute Category: Medical Code(s): R55 - Syncope and collapse (6) Elevated troponin: Status: Acute Category: Medical Code(s): R79.89 - Other specified abnormal findings of blood chemistry Plan 58-year-old male with recent diagnoses of acute heart failure with reduced ejection fraction. Previous admission to [facility] where he was diagnosed with heart failure with EF of 2024%, severe volume overload, CAD necessitating stenting but was not intervened on due to his heart failure after diagnostic cath. Denies chest pain today. Responding to diuresis. Cardiology assisting with care. Planning left heart cath today. Continues to require inpatient management. Problems addressed as follows: New onset heart failure with reduced ejection fraction CAD - Cardiology consulted, appreciate their recommendations. Patient has history of questionable syncope, known CAD that was not intervened on over the past month, new diagnosis of heart failure. Cardiology planning on left heart cath today to evaluate RCA/coronary arteries to evaluate for reversible obstructions. - Continue aggressive medical management with diuresis. Showing good response. Continue Lasix 40 mg p.o. daily. - Echo obtained during this admission showing EF of 30% with mild-moderate RV dilation and reduced RV function. - Troponins stable at 0.04 during this admission. No STEMI on EKG - Monitor overnight, anticipate discharge tomorrow. Initiate Aspirin 81 mg daily, Lipitor 80 mg nightly, Plavix 75 mg daily - Will consider initiation of goal-directed medical therapy including ARNI, BB, spironolactone in the morning pending blood pressure Syncope with fall Continue oxycodone 5 mg every 6 hours as needed for right sided musculoskeletal pain from fall Fall precautions Sepsis Pneumonia - Continue DuoNebs every 6 hours scheduled - Continue vancomycin 1.75 g daily and Zosyn 4.5 g every 6 hours scheduled for hospital-acquired pneumonia Diabetes: Continue insulin glargine 30 units nightly along with sliding scale insulin and fingersticks ACHS. Morning glucose 179, A1c ordered for the morning JOÉS: JOSÉ on presentation, creatinine 2.0 on admission. Improved to 0.9 today. BUN 30. Potassium 5.2, magnesium 1.7; repeat CBC, CMP, magnesium ordered for the morning Full code Heparin 3 times daily Diabetic diet
[2024-08-12 21:26] LABS: POC Glucose,Bedside 194 (70-110)
[2024-08-12] MEDS: INSULIN GLARGINE 100 UNITS/ML 3ML FLEXPEN 30 UNIT SUBCUT (21:48)
--- NOTE | 2024-08-12 22:30 | PC.NURSE ---
Patient refused remaining post-angio vital sign assessments (19:40, 20:40, 21:40) and further placement of the sales training coordinator.
[2024-08-13] VITALS: BP 110/77; PULSE 55; RESP 17; TEMP 36.8; O2SAT 95
[2024-08-13] MEDS: IPRATROPIUM/ALBUTEROL 3 ML NEB IH ×3 (00:03→11:10)
[2024-08-13 00:04] VITALS: PULSE 78; PULSE 80
--- NOTE | 2024-08-13 01:45 | PC.NURSE ---
Late Entry (for 23:00, 08/12/24): Patient was transferred to room 205 from room 210 due to disorientation, impulsiveness, tendency to move around in bed often, and major fall risk category.
[2024-08-13] MEDS: HYDROCODONE/APAP 5/325 MG TABLET 1 TAB PO (02:00)
[2024-08-13] MEDS: ACETAMINOPHEN 325MG TAB 650 MG PO (03:40)
--- NOTE | 2024-08-13 03:45 | PC.NURSE ---
Patient is alert to himself and is aware of his surroundings; however, the patient has been quite disoriented/confused/forgetful this shift. Easily reoriented and reassured. He has been pleasant this shift despite occasional impulsiveness and restlessness in bed due to overall discomfort. Patient was observed to be awake throughout the majority of the night. He has reported having pain in his back, his right side, and ribs. [place] and Tylenol were given for pain relief per MAR. No reports of syncope. Other scheduled medications were administered as appropriately per MAR as well. However, the patient has refused placement of cardiac cath rn and post-op vital sign assessments this shift. Otherwise, he has been cooperative with aspects of his care. Patient has expressed a large appetite this shift and has requested for numerous snacks despite diabetic diet recommendations. Sugar-free options were given. [facility] glucose checks performed. Generalized bruising, including a large bruise on his right thigh and a small one on the right side of his head, was noted. Upon auscultation of his lungs, rhonchi was heard + diminished sounds in the bases bilaterally. He reports having a loose but nonproductive cough. Patient has sufficient strength to reposition himself in bed, and he has sat on the edge of the bed at his own leisure as a means of comfort and to ease his restlessness. Bed alarm has remained on at all times with careful rounding by staff. Patient's right radial cath site was assessed; dressing remains clean, dry, and intact. Pulses +2. Trace edema noted in both ankles. Patient ambulated to the bathroom with standby assistance + use of a walker without difficulty. At this time, the patient is sitting upright in bed drinking coffee. No new needs at this time. Vital signs stable, tolerating room air well. Call light within reach.
[2024-08-13 04:00] VITALS: BP 128/73; PULSE 76; RESP 18; TEMP 37.2; O2SAT 96; BMI 33.5
[2024-08-13] MEDS: PIPERACILLIN/TAZO 4.5 GM in 0.9 % SODIUM CHLORIDE 100 ML IV ×2 (05:25→10:55)
[2024-08-13 05:54] VITALS: PULSE 80; PULSE 83
[2024-08-13 05:54] LABS: POC Glucose,Bedside 197 (70-110)
[2024-08-13] MEDS: HYDROCODONE/APAP 5/325 MG TABLET 2 TAB PO (06:05)
[2024-08-13] MEDS: humaLOG 100 UNITS/ML 10ML VIAL (SSI) SUBCUT ×2 (06:07→11:20)
[2024-08-13 07:05] LABS: Basophils # 0.1 K/mm3 (0-0.2); Basophils % 0.5 % (0.1-2.0); Eosinophils # 0.3 Kmm3 (0.0-0.4); Eosinophils % 2.9 % (0.1-12.0); Hematocrit 38.5 % (42.0-52.0); Hemoglobin 12.2 g/dL (14.1-18.0); Lymphocytes # 1.4 K/mm3 (0.7-4.5); Lymphocytes % 12.5 % (10-50); Mean Corpuscular HGB Conc 31.7 g/dL (31.8-35.4); Mean Corpuscular Hemoglobin 25.8 pg (27.0-31.2); Mean Corpuscular Volume 81.4 fl (80-94); Mean Platelet Volume 10.1 fl (7.4-10.4); Monocytes # 1.4 K/mm3 (0.1-1.0); Monocytes % 12.7 % (1.7-9.3); Neutrophils # 7.7 K/mm3 (1.8-7.8); Neutrophils % 70.9 % (37.0-80.0); Nucleated Red Blood Cells # 0 10^3/uL; Nucleated Red Blood Cells % 0 %; Platelet Count 204 K/mm3 (142-424); Red Blood Count 4.73 M/mm3 (4.60-6.20); Red Cell Distribution Width 16.7 % (11.5-17.5); Red Cell Distribution Width-SD 49.1 fL; White Blood Count 10.9 K/mm3 (4.8-10.8)
[2024-08-13 07:32] LABS: Alanine Aminotransferase 33 U/L (12-78); Albumin Level 3.9 g/dl (3.5-5.0); Albumin/Globulin Ratio 1.4 (1.1-1.8); Alkaline Phosphatase 95 U/L (38-126); Anion Gap 8.4 mEq/L (5-15); Aspartate Amino Transferase 31 U/L (17-59); Bilirubin,Total 1.1 mg/dl (0.2-1.3); Blood Urea Nitrogen 17 mg/dl (9-20); Calcium 9.4 mg/dl (8.4-10.2); Carbon Dioxide 29 mmol/L (22.0-30.0); Chloride 98 mmol/L (98-107); Creatinine Clearance Estimated 131 mL/min (50-200); Estimated Glomerular Filt Rate 99 ml/min (>60); GFR (African American) 119 ML/MIN (>60); Globulin 2.8 g/dL (1.3-3.2); Glucose 179 mg/dl (74-100); Potassium 4.4 mmoL/L (3.5-5.1); Sodium 131 mmol/L (136-145); Total Protein,Serum 6.7 g/dl (6.3-8.2)
[2024-08-13 07:47] VITALS: BP 148/82; PULSE 90; RESP 18; TEMP 36.6; O2SAT 93
[2024-08-13] MEDS: HEPARIN SODIUM 5,000 UNIT/ML VIAL 5000 UNIT SUBCUT ×2 (08:00→13:35)
[2024-08-13] MEDS: FUROSEMIDE 40MG/4ML VIAL 40 MG IV (08:00)
[2024-08-13] MEDS: CLOPIDOGREL 75MG TAB 75 MG PO (08:01)
[2024-08-13] MEDS: ASPIRIN EC 81MG TABLET 81 MG PO (08:01)
[2024-08-13] MEDS: GABAPENTIN 800MG TABLET 800 MG PO ×2 (08:01→13:35)
[2024-08-13 09:03] LABS: Hemoglobin A1C 11.5 % (4.0-6.0)
--- NOTE | 2024-08-13 09:57 | P.PN_ITS ---
Subjective Subjective Date: 08/13/24 Time: 08:00 Principal diagnosis: HFrEF, elevated trop, pneumonia Interval history: Patient is status post stenting to RCA. He reports he is feeling good today denies chest pain or shortness of breath. Morning labs reviewed and stable Exam Data for Last 24 hours Vital signs and Labs for Last 24 Hours: Temp Pulse Resp BP Pulse Ox O2 Del Method O2 Flow Rate 97.9 F 90 18 148/82 H 93 L Room Air 2 08/13/24 07:47 08/13/24 07:47 08/13/24 07:47 08/13/24 07:47 08/13/24 07:47 08/13/24 07:47 08/12/24 15:40 Laboratory Results - last 24 hr 08/12/24 14:00: Activated Clotting Time > 400 H* 08/12/24 16:14: POC Glucose 142 H 08/12/24 21:16: POC Glucose 194 H 08/13/24 05:29: POC Glucose 197 H 08/13/24 06:30: WBC 10.9 H D, RBC 4.73, Hgb 12.2 L, Hct 38.5 L, MCV 81.4, MCH 25.8 L, MCHC 31.7 L, RDW 16.7, Plt Count 204, MPV 10.1, Neut % (Auto) 70.9, Lymph % (Auto) 12.5, [place] % (Auto) 12.7 H, Eos % (Auto) 2.9, Baso % (Auto) 0.5, Neut # (Auto) 7.7, Lymph # (Auto) 1.4, [place] # (Auto) 1.4 H, Eos # (Auto) 0.3, Baso # (Auto) 0.1, Sodium 131 L, Potassium 4.4, Chloride 98, Carbon Dioxide 29, Anion Gap 8.4, BUN 17 D, Creatinine 0.80, Estimated Creat Clear 131, Estimated GFR 99, Est GFR ( Amer) 119, Glucose 179 H, Hemoglobin A1c 11.5 H, Calcium 9.4, Total Bilirubin 1.1, AST 31 D, ALT 33, Alkaline Phosphatase 95, Total Protein 6.7, Albumin 3.9, Globulin 2.8, Albumin/Globulin Ratio 1.4 I & O for Last 24 hours: Intake & Output 04/29/08/11/24 08/12/24 08/13/24 23:59 23:59 23:59 23:59 Intake Total 1180 / 1180 100 / 1250 2174 / 2174 Output Total 3600 / 3600 1400 / 1900 500 / 500 Balance -2420 / -2420 -1300 / -650 1674 / 1674 Weight 247 lb 4.8 oz 247 lb 4.751 oz 208 lb 8 oz Microbiology Reports for the Last 24 Hours: Microbiology 08/11/24 02:23 Blood Blood Culture - Preliminary NO GROWTH AFTER 48 HOURS 08/11/24 02:19 Blood Blood Culture - Preliminary NO GROWTH AFTER 48 HOURS Constitutional Constitutional: no acute distress *Routine Respiratory Exam Respiratory: Present CTA bilaterally and symmetric chest movement *Routine Cardiovascular Exam Cardiovascular: Present RRR, Normal S1 and Normal S2 *Routine Abdominal Exam Abdominal: Present soft and normoactive bowel sounds; Absent tenderness *Routine Extremities Exam Extremities: Present full ROM and normal capillary refill; Absent edema *Routine Skin Exam Skin: Present intact, dry and warm Detailed Neck Exam: Thyroids Thyroid: Absent bruit Progress Note: A&P Assessment and plan (1) Heart failure with reduced ejection fraction (HFrEF, <= 40%): Status: Acute (2) Sepsis: Status: Acute (3) Pneumonia: Status: Acute (4) Fall: Status: Acute (5) Syncope: Status: Acute (6) Elevated troponin: Status: Acute Assessment and Plan Assessment and Plan for All Diagnoses:: CAD Questionable syncope Multiple falls Left heart catheterization 08/2024-severe to critical disease in the proximal nondominant large right coronary artery disease status post 2 SIXTO Continue aspirin, Plavix and statin Patient should eventually wear a 2-week event monitor due to multiple falls and episodes of syncope. However, this will have to wait because patient will be going home with a LifeVest due to reduced ejection fraction. New onset HFrEF Echocardiogram shows an EF of 30% with mild to moderate RV dilation and reduction in RV function. Mild MR/AI/TR Start Entresto 24/26 mg p.o. twice daily and Jardiance 10 mg p.o. daily. Continue Lasix 40 mg p.o. daily and add Aldactone 25 mg p.o. daily. Will consider adding beta-waldo on an outpatient basis. Acute kidney injury Creatinine 2 on admission trending down to 0.8 today Sepsis Pneumonia Will defer antibiotics and treatments to primary service CV summary 08/13/2024: Patient is status post stenting to RCA. Echo shows an EF of 30%. LifeVest order placed, fit is pending. Continue meds as outlined below. Patient is CV stable for discharge and can follow-up in cardiology clinic in 1 week for reevaluation. Cardiac meds: Aspirin 81 mg p.o. daily Plavix 75 mg p.o. daily Atorvastatin 80 mg p.o. daily Lasix 40mg p.o. daily Entresto 24/26 mg p.o. twice daily Jardiance 10 mg p.o. daily Aldactone 25 mg p.o. daily
[2024-08-13] MEDS: DULOXETINE 30MG CAPSULE.DR 60 MG PO (10:55)
[2024-08-13] MEDS: SPIRONOLACTONE 25MG TABLET 25 MG PO (10:56)
[2024-08-13] MEDS: SACUBITRIL/VALSARTAN 24-26MG TABLET 1 EACH PO (10:56)
[2024-08-13] MEDS: EMPAGLIFLOZIN 10MG TABLET 10 MG PO (10:56)
[2024-08-13 11:10] VITALS: PULSE 93; PULSE 97; O2SAT 93
[2024-08-13 11:17] LABS: POC Glucose,Bedside 235 (70-110)
--- NOTE | 2024-08-13 11:52 | P.DS_ITS ---
General Admission date:: 08/11/24 Discharge date: 08/13/24 HPI HPI HPI: history unable to be obtained due to encephalopathy, lack of participation in interview and poor historian. obtained via er provider and records 58-year-old male presents to the ER via EMS. Reportedly patient has had multiple falls recently and reports being unsteady on his feet over the last few days to weeks. He states he is fallen multiple times in the last few days. Allegedly he has been to [facility] recently for similar complaints. Reportedly patient had a mechanical fall tonight. He states he gets dizzy, blacks out, then falls. He states he has struck his head. His loss of consciousness was brief. It is never associated with chest pain or vomiting. Patient denies being short of breath but was placed on oxygen by EMS, he does not wear oxygen at home. He states he does smoke and use marijuana and has a history of COPD with inhaler use. He reports having heart problems but cannot elaborate on this any further. He denies taking a diuretic pill. Patient is overall a poor historian. He denies any recent illness, no fevers or chills, no chest pain, no nausea, vomiting, or abdominal pain. He reports he is having right rib pain and states a few years ago he broke his ribs and thinks he may have cracked 1 again. He also complains of right ankle pain. CT spine IMPRESSION: No acute fracture or dislocation. There is severe multilevel degenerative disc disease and facet osteoarthropathy. Hospital Course Hospital Course Hospital Course: 58-year-old male with recent diagnoses of acute heart failure with reduced ejection fraction. Previous admission to [facility] where he was diagnosed with heart failure with EF of 2025%, severe volume overload, CAD necessitating stenting but was not intervened on due to his heart failure after diagnostic cath. On presentation, was in respiratory distress with concern for sepsis and CHF exacerbation. Responded to diuresis and antibiotics. Weaned to room air. Heart cath performed with stenting as below. Improved functionality and stable to discharge home. Close follow-up with cardiology as an outpatient. Problems addressed as follows: New onset heart failure with reduced ejection fraction CAD - Cardiology consulted, appreciate their recommendations. Patient has history of questionable syncope, known CAD that was not intervened on over the past month, new diagnosis of heart failure. Taken for left heart cath on 08/12. Findings as follows: Severe to critical disease in the proximal nondominant yet still large right coronary artery with successful stenting reducing the lesion to 0% with 2 contiguous drug-eluting stents improving flow from JUAN II to JUAN-3 flow Normal ejection fraction Still has mild coronary artery disease. See full report for details. Mildly elevated LVEDP Echo obtained during admission showing EF of 30% with mild to moderate RV dilation and reduced RV function. Responded to aggressive diuresis with improvement in respiratory status and ability to wearing to room air by day of discharge. Troponins were flat during admission at 0.04. No ST elevations on EKG. Initiated on goal-directed therapy with medications as follows. Aspirin 81 mg p.o. daily Plavix 75 mg p.o. daily Atorvastatin 80 mg p.o. daily Lasix 40mg p.o. daily Entresto 24/26 mg p.o. twice daily Jardiance 10 mg p.o. daily Aldactone 25 mg p.o. daily Syncope with fall Treated with oxycodone 5 mg every 6 hours as needed for right sided musculoskeletal pain from fall. Suspect component of CHF, hypoxia, and dehydration. Fall precautions during admission. Evaluated by therapy, stable to discharge home. Patient has assistance at home from . No falls during admission. Sepsis Pneumonia - Initiated on DuoNebs every 6 hours. Initiated on broad-spectrum antibiotics with vancomycin and Zosyn. Showing good improvement during admission. Transitioned to Levaquin to complete 7-day course given improvement with diuresis and respiratory status. Suspect mixed component of pneumonia resolving from his previous admission along with CHF. Given severity of illness on presentation however, necessitates completion of empiric course of 7 days of antibiotics. White count normal at 10.9 on day of discharge. Diabetes: Continue insulin glargine 30 units nightly along with sliding scale insulin and fingersticks ACHS. Morning glucose 179, A1c elevated at 11.5. Needs follow-up with PCP to discuss further adjustment and tighter control of diabetes. JOSÉ: JOSÉ on presentation, creatinine 2.0 on admission. Improved to 0.9 by discharge. BUN 17. Caution with nephrotoxins. Total time spent on discharge 32 minutes in counseling, documentation, chart review, and direct care with patient. Exam Data for Last 24 hours Vital signs and Labs for Last 24 Hours: Temp Pulse Resp BP Pulse Ox O2 Del Method O2 Flow Rate 97.9 F 93 H 18 148/82 H 93 L Room Air 2 08/13/24 07:47 08/13/24 11:10 08/13/24 07:47 08/13/24 07:47 08/13/24 11:10 08/13/24 11:10 08/12/24 15:40 Laboratory Results - last 24 hr 08/12/24 14:00: Activated Clotting Time > 400 H* 08/12/24 16:14: POC Glucose 142 H 08/12/24 21:16: POC Glucose 194 H 08/13/24 05:29: POC Glucose 197 H 08/13/24 06:30: WBC 10.9 H D, RBC 4.73, Hgb 12.2 L, Hct 38.5 L, MCV 81.4, MCH 25.8 L, MCHC 31.7 L, RDW 16.7, Plt Count 204, MPV 10.1, Neut % (Auto) 70.9, Lymph % (Auto) 12.5, Ware % (Auto) 12.7 H, Eos % (Auto) 2.9, Baso % (Auto) 0.5, Neut # (Auto) 7.7, Lymph # (Auto) 1.4, Ware # (Auto) 1.4 H, Eos # (Auto) 0.3, Baso # (Auto) 0.1, Sodium 131 L, Potassium 4.4, Chloride 98, Carbon Dioxide 29, Anion Gap 8.4, BUN 17 D, Creatinine 0.80, Estimated Creat Clear 131, Estimated GFR 99, Est GFR ( Amer) 119, Glucose 179 H, Hemoglobin A1c 11.5 H, Calcium 9.4, Total Bilirubin 1.1, AST 31 D, ALT 33, Alkaline Phosphatase 95, Total Protein 6.7, Albumin 3.9, Globulin 2.8, Albumin/Globulin Ratio 1.4 08/13/24 11:03: POC Glucose 235 H I & O for Last 24 hours: Intake & Output 08/10/24 08/11/24 08/12/24 08/13/24 23:59 23:59 23:59 23:59 Intake Total 1180 / 1180 100 / 1250 2174 / 2174 Output Total 3600 / 3600 1400 / 1900 500 / 500 Balance -2420 / -2420 -1300 / -650 1674 / 1674 Weight 112.173 kg 112.172 kg 94.574 kg Microbiology Reports for the Last 24 Hours: Microbiology 08/11/24 02:23 Blood Blood Culture - Preliminary NO GROWTH AFTER 48 HOURS 08/11/24 02:19 Blood Blood Culture - Preliminary NO GROWTH AFTER 48 HOURS Constitutional Constitutional: no acute distress, obese, chronically ill appearing and cooperative *Routine HEENT Exam Head: Present normocephalic Eye: Present EOMI and PERRL ENT: Present mucous membranes moist *Routine Neck Exam Neck: Present supple; Absent lymphadenopathy *Routine Respiratory Exam Respiratory: Present CTA bilaterally; Absent rhonchi, wheezes or crackles *Routine Cardiovascular Exam Cardiovascular: Present RRR *Routine Abdominal Exam Abdominal: Present soft and normoactive bowel sounds; Absent tenderness *Routine Rectal Exam Patient deferred: visual exam *Routine Exam Patient deferred: penile exam *Routine Extremities Exam Extremities: Absent cyanosis, clubbing or edema *Routine Skin Exam Skin: Present warm; Absent rash *Routine Neurological Exam Neurological: Present alert, oriented X3 and moving all extremities; Absent altered mental status Results Data Completed and Pending Labs on day of discharge: Labs from last 24 hours 08/13/24 08/13/24 08/13/24 11:03 06:30 05:29 WBC 10.9 H D RBC 4.73 Hgb 12.2 L Hct 38.5 L MCV 81.4 MCH 25.8 L MCHC 31.7 L RDW 16.7 Plt Count 204 MPV 10.1 Neut % (Auto) 70.9 Lymph % (Auto) 12.5 Ware % (Auto) 12.7 H Eos % (Auto) 2.9 Baso % (Auto) 0.5 Neut # (Auto) 7.7 Lymph # (Auto) 1.4 Ware # (Auto) 1.4 H Eos # (Auto) 0.3 Baso # (Auto) 0.1 Activated Clotting Time Sodium 131 L Potassium 4.4 Chloride 98 Carbon Dioxide 29 Anion Gap 8.4 BUN 17 D Creatinine 0.80 Estimated Creat Clear 131 Estimated GFR 99 Est GFR ( Amer) 119 Glucose 179 H POC Glucose 235 H 197 H Hemoglobin A1c 11.5 H Calcium 9.4 Total Bilirubin 1.1 AST 31 D ALT 33 Alkaline Phosphatase 95 Total Protein 6.7 Albumin 3.9 Globulin 2.8 Albumin/Globulin Ratio 1.4 08/12/24 08/12/24 08/12/24 21:16 16:14 14:00 WBC RBC Hgb Hct MCV MCH MCHC RDW Plt Count MPV Neut % (Auto) Lymph % (Auto) Ware % (Auto) Eos % (Auto) Baso % (Auto) Neut # (Auto) Lymph # (Auto) Ware # (Auto) Eos # (Auto) Baso # (Auto) Activated Clotting Time > 400 H* Sodium Potassium Chloride Carbon Dioxide Anion Gap BUN Creatinine Estimated Creat Clear Estimated GFR Est GFR ( Amer) Glucose POC Glucose 194 H 142 H Hemoglobin A1c Calcium Total Bilirubin AST ALT Alkaline Phosphatase Total Protein Albumin Globulin Albumin/Globulin Ratio Preliminary micro results at discharge 08/11/24 02:23 Blood Culture - Preliminary Blood NO GROWTH AFTER 48 HOURS 08/11/24 02:19 Blood Culture - Preliminary Blood NO GROWTH AFTER 48 HOURS DS: Diagnosis Discharge Diagnosis (1) Heart failure with reduced ejection fraction (HFrEF, <= 40%): Status: Acute Code(s): I50.20 - Unspecified systolic (congestive) heart failure (2) Sepsis: Status: Acute Code(s): A41.9 - Sepsis, unspecified organism (3) Pneumonia: Status: Acute Code(s): J18.9 - Pneumonia, unspecified organism (4) Fall: Status: Acute Code(s): W19.XXXA - Unspecified fall, initial encounter (5) Syncope: Status: Acute Code(s): R55 - Syncope and collapse (6) Elevated troponin: Status: Acute Code(s): R79.89 - Other specified abnormal findings of blood chemistry Meds Home Medications and Allergies Home Medications ?Medication ?Instructions ?Recorded ?Confirmed ?Type albuterol sulfate 90 mcg/actuation 2 puff inhalation Q6HP PRN Wheezing 08/11/24 08/11/24 History aerosol inhaler budesonide-formoterol HFA 160 2 puff inhalation BID 08/11/24 08/11/24 History mcg-4.5 mcg/actuation aerosol inhaler (Symbicort) duloxetine 60 mg capsule,delayed 60 mg PO DAILY 08/11/24 08/11/24 History release gabapentin 800 mg tablet 800 mg PO TID 08/11/24 08/11/24 History lancets (Accu-Chek Softclix 08/11/24 08/11/24 History Lancets) trazodone 100 mg tablet 100 mg PO HS 08/11/24 08/11/24 History aspirin 81 mg tablet,delayed 81 mg PO DAILY 30 days #30 tabs 08/13/24 Rx release atorvastatin 80 mg tablet 80 mg PO HS 30 days #30 tabs 08/13/24 Rx clopidogrel 75 mg tablet 75 mg PO DAILY 30 days #30 tabs 08/13/24 Rx dapagliflozin propanediol 10 mg 10 mg PO DAILY 30 days #30 tabs 08/13/24 Rx tablet (Farxiga) furosemide 40 mg tablet 40 mg PO DAILY 30 days #30 tabs 08/13/24 Rx insulin glargine 100 unit/mL (3 30 unit (0.3 mL) SQ HS 30 days #9 08/13/24 Rx mL) subcutaneous pen (Lantus mL Solostar U-100 Insulin) levofloxacin 750 mg tablet 750 mg PO DAILY #4 tabs 08/13/24 Rx oxycodone-acetaminophen 5 mg-325 1 tab PO Q6HP PRN Moderate To 08/13/24 Rx mg tablet Severe Pain (4-10) 3 days #11 tabs pen needle, diabetic 31 gauge x #100 ea 08/13/24 Rx 1/4 sacubitril 24 mg-valsartan 26 mg 1 tab PO BID 30 days #60 tabs 08/13/24 Rx tablet (Entresto) spironolactone 25 mg tablet 25 mg PO DAILY 30 days #30 tabs 08/13/24 Rx New Prescriptions to Start Prescriptions: aspirin Orlin Wagner atorvastatin Kristy,Orlin clopidogrel Orlin Wagner dapagliflozin propanediol [Farxiga] Orlin Wagner furosemide Orlin Wagner insulin glargine [Lantus Solostar U-100 Insulin] Orlin Wagner levofloxacin Orlin Wagner oxycodone-acetaminophen Orlin Wagner pen needle, diabetic Orlin Wagner sacubitril-valsartan [Entresto] Orlin Wagner spironolactone Orlin Wagner Allergies Allergy/AdvReac Type Severity Reaction Status Date / Time No Known Allergies Allergy Verified 08/11/24 01:40 Discharge Plan Disposition Patient Disposition: Home, Self-Care Condition: Fair Discharge Order Discharge Orders: Discharge Order (Routine); Ordered 08/13/24 Ordered By: Orlin Wagner Follow up Plan Follow up with: Corry Ontiveros APRN [Nurse Practitioner] - 08/19/24 3:00 pm Tre Bella MD [Referring] - 08/18/24 2:20 pm Prescriptions/Medication Reconciliation: New clopidogrel 75 mg Tablet 75 mg PO DAILY 30 Days Qty: 30 0RF aspirin 81 mg Tablet,Delayed Release (Dr/Ec) 81 mg PO DAILY 30 Days Qty: 30 0RF Entresto 24-26 mg Tablet 1 tab PO BID 30 Days Qty: 60 0RF oxycodone-acetaminophen 5-325 mg Tablet 1 tab PO Q6HP PRN (Reason: Moderate To Severe Pain (4-10)) 3 Days Qty: 11 0RF (DME) pen needle, diabetic 31 gauge x 1/4 needle See Rx Instructions .ROUTE .MEDSUPPLY Qty: 100 0RF Rx Instructions: As directed levofloxacin 750 mg tablet 750 mg PO DAILY Qty: 4 0RF Rx Instructions: start afternoon of 08/13/24 Continued gabapentin 800 mg tablet 800 mg PO TID trazodone 100 mg tablet 100 mg PO HS albuterol sulfate 90 mcg/actuation HFA aerosol inhaler 2 puff INHALATION Q6HP PRN (Reason: Wheezing) duloxetine 60 mg capsule,delayed release(DR/EC) 60 mg PO DAILY budesonide-formoterol [Symbicort] 160-4.5 mcg/actuation HFA aerosol inhaler 2 puff INHALATION BID furosemide 40 mg tablet 40 mg PO DAILY 30 Days Qty: 30 0RF atorvastatin 80 mg tablet 80 mg PO HS 30 Days Qty: 30 0RF spironolactone 25 mg tablet 25 mg PO DAILY 30 Days Qty: 30 0RF dapagliflozin propanediol [Farxiga] 10 mg tablet 10 mg PO DAILY 30 Days Qty: 30 0RF Changed insulin glargine [Lantus Solostar U-100 Insulin] 100 unit/mL (3 mL) insulin pen 30 unit SQ HS 30 Days Qty: 9 0RF Discontinued carvedilol 12.5 mg tablet 12.5 mg PO BID amlodipine 10 mg tablet 10 mg PO DAILY lisinopril 40 mg tablet 40 mg PO DAILY No Action (DME) lancets [Accu-Chek Softclix Lancets] Misc MISCELLANEOUS Other Ambulatory Orders: Basic Metabolic Panel (Routine) Timeframe: 20240819 Facility: [facility] - Location: Laboratory Ordered By: Orlin Wagner Complete Blood Count Auto Diff (Routine) Timeframe: 20240819 Facility: [facility] - Location: Laboratory Ordered By: Orlin Wagner Problem Reconciliation Problems Reviewed?: Yes Patient Discharge Instructions ACTIVITY: Continue current activity DIET: continue same diet Patient Instructions: DI for Pneumonia -- Adult, DI for Cardiac Catheterization, DI for Surgical Site Infection, Stop Light Pneumonia, Stop Light Heart Failure Print Language: Afghan Providers Primary Care Provider: Provider,Referral Admit Provider: Orlin Wagner Attending Provider: Orlin Wagner
--- NOTE | 2024-08-17 10:33 | SW/DCPLANNER ---
Phoned patient x2. Patients phone is some [employer] number. Eleazar Longoria
== END 2024-08-13 14:48 | disposition home or self-care (01) | DRG 321 ==
LOC: ER 02:49 → 2ND 04:14
PROVIDERS: Internal Medicine; Student in an Organized Health Care Education/Training Program; Admitting Provider Internal Medicine Adolescent Medicine; Emergency Provider Emergency Medicine; Visit Provider Internal Medicine Adolescent Medicine
PROC: 4A023N7 Measurement of Cardiac Sampling and Pressure, Left Heart, Percutaneous Approach (ICD-10-PCS; CPT 93452; principal; 2024-08-12 11:40)
DX: I50.21 Acute systolic (congestive) heart failure (principal); A41.9 Sepsis, unspecified organism; J15.69 Pneumonia due to other Gram-negative bacteria; R65.20 Severe sepsis without septic shock; E87.1 Hypo-osmolality and hyponatremia; N17.9 Acute kidney failure, unspecified; I77.1 Stricture of artery; R29.6 Repeated falls; E66.9 Obesity, unspecified; D64.9 Anemia, unspecified; N18.9 Chronic kidney disease, unspecified; E87.5 Hyperkalemia; W19.XXXA Unspecified fall, initial encounter; I25.10 Atherosclerotic heart disease of native coronary artery without angina pectoris; R55 Syncope and collapse; Z79.4 Long term (current) use of insulin; Z79.899 Other long term (current) drug therapy; Z79.891 Long term (current) use of opiate analgesic; Z68.33 Body mass index [BMI] 33.0-33.9, adult; Z79.51 Long term (current) use of inhaled steroids
CPT/HCPCS: 36415; 70450; 70496; 70498; 71045; 71260; 72125; 73610; 80053; 80307; 80320; 81001; 82803; 82962; 83036; 83605; 83735; 83880; 84484; 85007; 85025; 85347; 87040; 92928; 93005; 93306; 93458; 94640; 94761; 97116; 97163; 97166; 97530; 99152; 99153; 99291; C1725; C1760; C1769; C1874; C9600; J1200; J1644; J1938; J2250; J2543; J3010; J3370; J3372; J7120; J7620; Q9957; Q9967